=== PATIENT | female | born 1970 | race Caucasian/White ===

== ENCOUNTER → 2019-12-10 11:18 | Outpatient (CLI) | payer BC, SELFPAY ==
[2019-12-10 10:42] VITALS: BMI 20.7
[2019-12-10 12:51] LABS: Vitamin D,25 Hydroxy 39.6 ng/mL
[2019-12-10 12:55] LABS: Anion Gap 2 (5-15); BUN 17 mg/dL (7-18); BUN/Creat Ratio 22.5 RATIO (10-20); Calcium,Total 8.9 mg/dL (8.5-10.1); Chloride 106 mmol/L (98-107); Cholesterol 184 mg/dL (200); Creatinine, Serum 0.76 mg/dL (0.55-1.02); EST Glomerular Filtration Rate 86 mL/min (>60); Est Glom Filt Rate - Afr Amer 104 mL/min (>60); Glucose 91 mg/dL (74-106); High Density Lipoprotein 79 mg/dL; Potassium 3.7 mmol/L (3.5-5.1); Sodium Level 139 mmol/L (136-145); Triglycerides 121 mg/dL; Very Low Density Lipoprotein 24 mg/dL (5-40)
[2019-12-16 17:16] LABS: HPV Reflexed? NOT INDICATED
== END ==
PROVIDERS: PCP Family Medicine; Referring Provider Family Medicine; Visit Provider Family Medicine
DX: Z12.72 Encounter for screening for malignant neoplasm of vagina (principal); E05.00 Thyrotoxicosis with diffuse goiter without thyrotoxic crisis or storm; E07.9 Disorder of thyroid, unspecified
CPT/HCPCS: 36415; 80048; 80061; 82306; 88175; G0145

== ENCOUNTER → 2019-12-31 16:00 | Outpatient (CLI) | payer BC, SELFPAY ==
[2019-12-10 10:42] VITALS: BMI 20.7
--- NOTE | 2019-12-31 16:00 | BI_ITS ---
MAMMOGRAPHY - BILATERAL SCREENING REASON FOR EXAM: Female, 49 years old. Routine annual screening examination. PERTINENT HISTORY: Non-contributory. TECHNIQUE: Digital bilateral breast azalea (3D mammographic acquisition) in the CC and MLO projections. 2-D mediolateral oblique (MLO) and craniocaudad (CC) views of both breasts were obtained. CAD: Full Field Digital Mammography with Computer Added Detection was performed. COMPARISON: Comparison is made with prior outside examination of 08/08/2017. FINDINGS: Breast Composition: The breasts are extremely dense, which lowers the sensitivity of mammography. There are no dominant masses or suspicious calcifications. No other significant abnormalities are identified. There has been no significant change since the prior study. BI/SCREEN MAMM (CAD) W/AZALEA BILAT IMPRESSION: Stable bilateral screening mammogram. Yearly follow-up mammogram recommended. (A) ASSESSMENT CATEGORY: BIRADS Category 1: Negative. A letter regarding these results will be sent to the patient by the facility within 30 days. Approximately 10% of breast cancers are not detected by mammography. A normal mammogram should not delay biopsy of a clinically suspicious abnormality. [id number] Electronically Signed: Isiah Banda, at 8:20 EDT , Service support ,
== END ==
PROVIDERS: PCP Family Medicine; Visit Provider Family Medicine
DX: Z12.31 Encounter for screening mammogram for malignant neoplasm of breast (principal)
CPT/HCPCS: 77063; 77067

== ENCOUNTER 2020-01-06 07:23 | Day surgery (SDC) | payer BC, SELFPAY ==
[2019-12-10 10:42] VITALS: BMI 20.7
[2020-01-06] VITALS (9 sets, daily range): BP systolic 72–122; BP diastolic 41–70; PULSE 62–94; RESP 16; TEMP 36.6–37.2; O2SAT 100; BMI 20.7
[2020-01-06] MEDS: Lactated Ringers 1,000 ML 100 ML IV (07:53)
--- NOTE | 2020-01-06 07:53 | HP.PCM_ITS ---
History of Present Illness Date of Admission: 01/06/20 The patient is a 49 year old F presents for screening colonoscopy. She has never had a colonoscopy in the past. She denies any abdominal pain or blood in her stool. She has no immediate family history of colon cancer. She does have history of colon cancer in her grandmother. She is not on any blood thinners. Past Medical/Surgical History - Planned Operation Planned Operative Procedure/s: COLONOSCOPY Date of Operative Procedure: 01/06/20 Permit Signed: Yes S.O.S: No Is This Patient Having a Total Joint: No - Previous Hospitalizations/Surgeries HX Hospitalizations: No Any Problems With Anesthesia: No You/Your Family Experience Fever (Hyperthermia) With Anes: No Cholinesterase deficiency: No - Cardiovascular Hx Chest Pain within Last 2 months: No Hx of Irregular Heartbeat and/or Afib: No Hx Heart Attack: No Hx Congestive Heart Failure: No Hx Rheumatic Fever: No Hx Hypertension: No Hx Internal Defibrillator: No Hx Pacemaker: No Hx Cardiac Catheterization: No Hx Cardiac Surgery/Stents/Etc.: No Hx Stress Test: No HX Edema: No Hx Pain in Legs when Walking/Leg Cramps: No - Respiratory Chronic Cough: No HX of Shortness of Breath: No Hoarseness: No Hx Chronic Obstructive Pulmonary Disease (COPD): No Hx Asthma: No Hx Emphysema: No Hx Sleep Apnea: No Hx Oxygen Use at Home: No Hx Respiratory Tract Infection/Cold (presently): No Do You Snore Loudly (louder than talking or can be heard): No Do You Often Feel Tired/ Fatigued/ Sleepy Dring Daytime?: No Has Anyone Observed You Stop Breathing During Sleep?: No Result (for STOP score): Negative Hx Smoking: No Smoking Status: Never smoker - Gastrointestinal Hx Gastroesophageal Reflux: No Hx Gastrointestinal Disorders: No Hx Gastrointestinal Bleed: No Hx Ulcer: No Hx Hiatal Hernia: No Difficulty Chewing/Swallowing: No Recent Onset of Swallowing Problems: No Special diet followed at home: No Hx Unplanned Weight Loss of 20#: No HX Unplanned Weight Gain of 20#: No - Neurological Hx Seizures: No HX Syncope/Blackout Spells/Unconsciousness: No Hx CVA/Stroke: No Hx Transient Ischemic Attacks (TIA): No Hx Multiple Sclerosis: No Hx Parkinson's Disease: No Hx Head/Neck Injury: No Hx Headaches: No Hx Back Injury/Pain: No Recent Onset of Speech Difficulty: No Restless Legs: No Does patient have nerve stimulator: No - Blood Disorder Hx Leukemia: No Bleeding Tendencies: No Hx Deep Vein Thrombosis: No Hx High Cholesterol: No Blood Transmitted Disease: No Hx Hepatitis: No Hx Cirrhosis: No Hx Anemia: No Hx Blood Disorders: No - Reproduction : No Is Patient Lactating: No Hx Hysterectomy: No Hx Tubal Ligation: No Are You Post Menopause: No Pt Instructed Not To Have Any Sex From Now Until Surgery: No - Genitourinary Hx Renal Disease: No - Musculoskeletal Hx Arthritis: No Hx Rheumatoid Arthritis: No Hx Gout: No Recent Onset of an Orthopedic Problem: No - Endocrine Hx Diabetes: No Thyroid Disease: No - GRAVES DISEASE-IN REMISSION CURRENTLY Hx Steroid Therapy: No - Psycho/Social Hx Substance Use: No Hx Alcohol Use: No Hx Anxiety: No Hx Depression: No Mental Illness: No Hx Dementia: No - Miscellaneous Hx Cancer: No Recent Exposure to Contagious Disease: No Active MRSA: No Hx of C-Diff: No Any Loose Teeth: No Allergies No Known Allergies Allergy (Verified 01/06/20 07:49) - Discharge Is Pt Admitted From a Assisted, or a Senior Living: No Who Could Help: After D/C, Where Do you Plan to Go: Return Home - Physical Exam Vitals/I&O's: Vital Signs Temp Pulse Resp BP Pulse Ox 98.9 F 94 16 122/70 H 100 01/06/20 07:49 01/06/20 07:49 01/06/20 07:49 01/06/20 07:49 01/06/20 07:49 Oxygen Delivery Method Room Air Weight: 109 lb 9.116 oz Body Mass Index (BMI) 20.7 General: Alert, Oriented x3 Lungs: Normal air movement Cardiovascular: Regular rate, Regular Rhythm Abdomen: Soft, Non Tender, Non-Distended Current Medications Lactated Ringer's () 1,000 mls @ 100 mls/hr IV .Q10H JOSE Last Admin: 01/06/20 07:53 Dose: 100 mls/hr Documented by: Assessment/Plan All Active Problems (Last Reviewed 12/10/19 @ 11:[address] Mikhail Clemons, DO) Encounter for preventive health examination (Acute) Thyroid disease (Acute) History of pneumonia (Acute) Hives (Acute) 49-year-old female here for screening colonoscopy I explained endoscopy in detail to the patient. I explained the risks including but not limited to stroke or heart attack with anesthesia, perforation of the GI tract, bleeding, infection. I explained that any of these could necessitate further emergency surgery. The patient understands and all questions were answered sufficiently. The patient wishes to proceed with procedure. We discussed the current risks associated with COVID-19. While it is understood that there is a community spread of COVID-19, the risk of krishna COVID-19 while at [facility] ([facility]) is very low; however, the risk cannot be completely mitigated because of the community spread of the disease. We discussed in detail the risk of exposure to and/or potential harm posed by the COVID-19 virus with having a surgery/procedure at this time versus the risk of delaying the surgery/procedure. It is not possible to know either the risk of delaying the surgery or procedure or chance of getting an infection with perfect accuracy, but a joint decision was made to proceed at this time with the scheduled surgery/procedure as indicated on the consent form. Patient was notified that we will need to comply with any screening or testing [facility] wishes to perform or that surgery may be delayed for any positive results. Ac Nixon MD Pager: [facility] [address] [place] [address] [address] [place] [address] Office: Surgery Risks - Colonoscopy Risks Include but are not Limited To: Risks include but are not limited to: Bleeding, perforation requiring further surgery, inability to complete colonoscopy requiring barium enema.
--- NOTE | 2020-01-06 08:30 | OP.CCLET_ITS ---
01/06/2020 Mikhail Clemons Re : Colonoscopy procedure for Lizett Jung Dear Dr. Clemons This procedure was performed on Monday, January 06, 2020. My impressions and recommendations are as follows: Impressions : - The entire examined colon is normal on direct and retroflexion views. - No specimens collected. Recommendations : - Discharge patient to home. - Resume previous diet. - Continue present medications. - Repeat colonoscopy in 10 years for screening purposes. My findings are described in the full procedure note, which is enclosed. If I can be of further assistance, please feel free to contact me at Doctor phone number(s): , Work: . Sincerely, Ac Nixon MD 01/06/2020 8:30:23 AM This report has been signed electronically.
--- NOTE | 2020-01-06 08:30 | OP.COLON_ITS ---
Patient Name: Lizett Jung Procedure Date: 01/06/2020 7:56 AM Date of : 1970 Age: 49 Procedure: Colonoscopy Indications: Screening for colorectal malignant neoplasm Providers: Ac Nixon MD Referring MD: Mikhail Clemons Medicines: Monitored Anesthesia Care Patient Profile: This is a 49 year old female. Refer to note in patient chart for documentation of history and physical. Last Colonoscopy: none. The patient's first colonoscopy is today. Complications: No immediate complications. Procedure: Pre-Anesthesia Assessment: - Prior to the procedure, a History and Physical was performed, and patient medications and allergies were reviewed. The patient's tolerance of previous anesthesia was also reviewed. The risks and benefits of the procedure and the sedation options and risks were discussed with the patient. All questions were answered, and informed consent was obtained. Prior Anticoagulants: The patient has taken no previous anticoagulant or antiplatelet agents. After reviewing the risks and benefits, the patient was deemed in satisfactory condition to undergo the procedure. After I obtained informed consent, the scope was passed under direct vision. Throughout the procedure, the patient's blood pressure, pulse, and oxygen saturations were monitored continuously. The colonoscope was introduced through the anus and advanced to the cecum, identified by appendiceal orifice and ileocecal valve. The colonoscopy was performed without difficulty. The patient tolerated the procedure well. The quality of the bowel preparation was good. Scope In: 8:09:09 AM Scope Withdrawal Time 0 hours 6 minutes 20 seconds Scope Out: 8:23:58 AM Total Procedure Duration Time 0 hours 14 minutes 49 seconds Findings: The entire examined colon appeared normal on direct and retroflexion views. Impression: - The entire examined colon is normal on direct and retroflexion views. - No specimens collected. Recommendation: - Discharge patient to home. - Resume previous diet. - Continue present medications. - Repeat colonoscopy in 10 years for screening purposes. Procedure Code(s): --- Professional --- 42540, Colonoscopy, flexible; diagnostic, including collection of specimen(s) by brushing or washing, when performed (separate procedure) Diagnosis Code(s): --- Professional --- Z12.11, Encounter for screening for malignant neoplasm of colon CPT copyright 2017 [employer]. All rights reserved. The codes documented in this report are preliminary and upon airport operations crew member review may be revised to meet current compliance requirements. Ac Nixon MD 01/06/2020 8:30:23 AM This report has been signed electronically. Number of Addenda: 0 Note Initiated On: 01/06/2020 7:56 AM
== END 2020-01-06 09:17 | disposition home or self-care (01) ==
LOC: EN 07:24 → AC 07:24
PROVIDERS: Anesthesiology; PCP Family Medicine; Referring Provider Family Medicine; Visit Provider Surgery
PROC: 0DJD8ZZ Inspection of Lower Intestinal Tract, Via Natural or Artificial Opening Endoscopic (ICD-10-PCS; CPT 45378; principal; 2020-01-06 08:25)
DX: Z12.11 Encounter for screening for malignant neoplasm of colon (principal); Z20.828 Contact with and (suspected) exposure to other viral communicable diseases; Z80.0 Family history of malignant neoplasm of digestive organs; E07.9 Disorder of thyroid, unspecified
CPT/HCPCS: 45378; 87635; C9803; J7120; J2405; U0003

== ENCOUNTER 2021-05-02 13:52 | Outpatient (CLI) | payer BC, SELFPAY ==
[2021-05-02 15:44] LABS: Vitamin B12 384 pg/mL (211-911); Vitamin D,25 Hydroxy 23.6 ng/mL
[2021-05-02 15:53] LABS: Free T3 2.1 pg/mL (2.18-3.98); T4 Free Direct 0.69 ng/dL (0.76-1.46); Thyroid Stim Hormone (TSH) 1.62 uIU/mL (0.358-3.74)
== END 2021-05-02 23:59 | disposition home or self-care (01) ==
LOC: BIMLAB 13:53
PROVIDERS: Visit Provider Internal Medicine Endocrinology, Diabetes & Metabolism
DX: E05.00 Thyrotoxicosis with diffuse goiter without thyrotoxic crisis or storm (principal); E55.9 Vitamin D deficiency, unspecified
CPT/HCPCS: 36415; 82306; 82607; 84439; 84443; 84481

== ENCOUNTER 2021-05-31 11:11 | Outpatient (CLI) | payer BC, SELFPAY ==
[2021-05-31 12:52] LABS: Free T3 2.4 pg/mL (2.18-3.98); T4 Free Direct 0.74 ng/dL (0.76-1.46); Thyroid Stim Hormone (TSH) 1.68 uIU/mL (0.358-3.74)
== END 2021-05-31 23:59 | disposition home or self-care (01) ==
LOC: BIMLAB 11:12
PROVIDERS: Referring Provider Internal Medicine Endocrinology, Diabetes & Metabolism; Visit Provider Internal Medicine Endocrinology, Diabetes & Metabolism
DX: E06.3 Autoimmune thyroiditis (principal)
CPT/HCPCS: 36415; 84439; 84443; 84481

== ENCOUNTER → 2021-09-07 | Outpatient (CLI) | payer BC, SELFPAY ==
[2021-09-07 12:46] LABS: Anion Gap 6 (5-15); BUN 17 mg/dL (7-18); BUN/Creat Ratio 22.4 RATIO (10-20); Calcium,Total 9.1 mg/dL (8.5-10.1); Chloride 107 mmol/L (98-107); Cholesterol 189 mg/dL (200); Creatinine, Serum 0.76 mg/dL (0.55-1.02); EST Glomerular Filtration Rate 85 mL/min (>60); Est Glom Filt Rate - Afr Amer 103 mL/min (>60); Glucose 91 mg/dL (74-106); High Density Lipoprotein 76 mg/dL; Potassium 3.8 mmol/L (3.5-5.1); Sodium Level 141 mmol/L (136-145); Thyroid Stim Hormone (TSH) 1.57 uIU/mL (0.358-3.74); Triglycerides 67 mg/dL; Very Low Density Lipoprotein 13 mg/dL (5-40)
[2021-09-07 12:48] LABS: Absolute Lymphocyte Count 2.61 X10^3/uL (0.83-4.51); Absolute Neutrophil Count 3.4 X10^3/uL (2.0-7.7); Basophil# 0.03 X10^3/uL; Basophil% 0.4 % (0-1); Eosinophil# 0.34 X10^3/uL; Eosinophils% 4.9 % (0-5); Hemoglobin 13.6 g/dL (12.0-15.0); Lymphocyte # 2.61 X10^3/ul (0.83-4.51); Lymphocyte % 37.7 % (19-41); Mean Corp Hgb Conc 31.6 g/dL (32-36); Mean Corpuscular Hgb 30.8 pg (27.0-32.0); Mean Corpuscular Volume 97.3 fL (81-99); Mean Platelet Vol. 9.8 fl (6.2-12.0); Monocyte# 0.51 X10^3/uL; Monocyte% 7.4 % (0-10); NRBC Flagged by Analyzer 0 % (0-5); Neutrophil # 3.43 X10^3/uL (2.7-7.7); Neutrophil % 49.5 % (47-70); Platelet Count 179 K/mm3 (150-450); RBC Distribution Width SD 43.2 fl (35.1-43.9); Red Blood Count 4.42 M/mm3 (4.2-5.4); White Blood Count 6.9 K/mm3 (4.4-11.0)
== END | disposition home or self-care (01) ==
LOC: BIMLAB 08:07
PROVIDERS: Referring Provider Nurse Practitioner Family; Visit Provider Nurse Practitioner Family
DX: Z00.00 Encounter for general adult medical examination without abnormal findings (principal)
CPT/HCPCS: 36415; 80048; 80061; 84443; 85025

== ENCOUNTER → 2021-09-27 | Outpatient (CLI) | payer BC, SELFPAY ==
--- NOTE | 2021-09-27 16:03 | BI_ITS ---
MAMMOGRAPHY - BILATERAL SCREENING REASON FOR EXAM: Female, 51 years old. Routine annual screening examination. PERTINENT HISTORY: Non-contributory. TECHNIQUE: Digital bilateral breast azalea (3D mammographic acquisition) in the CC and MLO projections. 2-D mediolateral oblique (MLO) and craniocaudad (CC) views of both breasts were obtained. CAD: Full Field Digital Mammography with Computer Added Detection was performed. COMPARISON: Comparison is made with prior study dated 12/31/2019. FINDINGS: Breast Composition: The breasts are extremely dense, which lowers the sensitivity of mammography. There are no dominant masses or suspicious calcifications. I suspect a 6.3 mm x 8.1 mm nodule in the slightly upper lateral aspect of the left breast. Correlation with ultrasound is recommended. No other significant abnormalities are identified. BI/SCRN MAMM (CAD)W/AZALEA BILAT IMPRESSION: Possible 6.3 mm x 8.1 mm nodule in the slightly upper lateral aspect of the left breast. Correlation with ultrasound is recommended. ASSESSMENT CATEGORY: BIRADS Category 0: Incomplete. Need additional imaging evaluation. A letter regarding these results will be sent to the patient by the facility within 30 days. Approximately 10% of breast cancers are not detected by mammography. A normal mammogram should not delay biopsy of a clinically suspicious abnormality. [id number] Electronically Signed: Isiah Banda MD at 9:03 EDT ,
== END | disposition home or self-care (01) ==
PROVIDERS: PCP Family Medicine; Referring Provider Nurse Practitioner Family; Visit Provider Nurse Practitioner Family
DX: Z12.31 Encounter for screening mammogram for malignant neoplasm of breast (principal)
CPT/HCPCS: 77063; 77067

== ENCOUNTER → 2021-09-28 | Outpatient (CLI) | payer BC, SELFPAY ==
--- NOTE | 2021-09-28 12:24 | US_ITS ---
STUDY: ULTRASOUND BREAST - LEFT REASON FOR EXAM: Female, 51 years old. Abnormal screening mammogram. TECHNIQUE: Axial and longitudinal images of the LEFT breast were performed with a high resolution ultrasound transducer. # OF IMAGES: 48 COMPARISON: Comparison is made with prior mammogram dated 09/27/2021. FINDINGS: LEFT Breast: Dense fibroglandular tissue. No definite sonographic abnormality is seen. The patient will be recalled for additional views of the left breast including 90 degree lateral and compression spot views. US/Breast Limited Unilateral IMPRESSION: No definite abnormality is seen sonographically. The patient will be recalled for additional views including 90 degree lateral and compression spot views. ASSESSMENT CATEGORY: BIRADS Category 0: Incomplete. Need additional imaging evaluation. A letter regarding these results will be sent to the patient by the facility within 30 days. Electronically Signed: Isiah Banda MD at 14:11 EDT ,
== END | disposition home or self-care (01) ==
PROVIDERS: PCP Family Medicine; Visit Provider Nurse Practitioner Family
DX: R92.8 Other abnormal and inconclusive findings on diagnostic imaging of breast (principal)
CPT/HCPCS: 76642

== ENCOUNTER → 2021-09-30 | Outpatient (CLI) | payer BC, SELFPAY ==
--- NOTE | 2021-09-30 09:26 | BI_ITS ---
MAMMOGRAPHY - UNILATERAL DIAGNOSTIC: LEFT BREAST REASON FOR EXAM: Female, 51 years old. Abnormal screening mammogram. PERTINENT HISTORY: Non-contributory. TECHNIQUE: 90 degree lateral and compression spot views of the left breast were obtained. CAD: Full Field Digital Mammography with Computer Added Detection was performed. COMPARISON: Comparison is made with prior mammogram dated 09/27/2021. FINDINGS: Breast Composition: The breasts are extremely dense, which lowers the sensitivity of mammography. There are no dominant masses or suspicious calcifications. No other significant abnormalities are identified. BI/DIAG MAMM W/CAD, UNILAT IMPRESSION: Negative unilateral diagnostic mammogram. Yearly followup mammogram recommended. (A) ASSESSMENT CATEGORY: BIRADS Category 1: Negative. A letter regarding these results will be sent to the patient by the facility within 30 days. Approximately 10% of breast cancers are not detected by mammography. A normal mammogram should not delay biopsy of a clinically suspicious abnormality. Electronically Signed: Isiah Banda MD at 10:12 EDT ,
== END | disposition home or self-care (01) ==
LOC: OPBI 09:24
PROVIDERS: PCP Family Medicine; Referring Provider Nurse Practitioner Family; Visit Provider Nurse Practitioner Family
DX: R92.8 Other abnormal and inconclusive findings on diagnostic imaging of breast (principal)
CPT/HCPCS: 77065

== ENCOUNTER → 2022-09-02 | Outpatient (CLI) | payer BC, SELFPAY ==
[2022-09-02 12:30] LABS: T4 Free Direct 0.69 ng/dL (0.76-1.46); Thyroid Stim Hormone (TSH) 2.05 uIU/mL (0.358-3.74)
== END | disposition home or self-care (01) ==
PROVIDERS: PCP Family Medicine; Referring Provider Internal Medicine Endocrinology, Diabetes & Metabolism; Visit Provider Internal Medicine Endocrinology, Diabetes & Metabolism
DX: E06.3 Autoimmune thyroiditis (principal)
CPT/HCPCS: 36415; 84439; 84443

== ENCOUNTER → 2022-11-22 | Outpatient (CLI) | payer BC, SELFPAY ==
--- NOTE | 2022-11-22 13:26 | BI_ITS ---
MAMMOGRAPHY - BILATERAL SCREENING REASON FOR EXAM: Female, 52 years old. Routine annual screening examination. PERTINENT HISTORY: Non-contributory. TECHNIQUE: Digital bilateral breast azalea (3D mammographic acquisition) in the CC and MLO projections. 2-D mediolateral oblique (MLO) and craniocaudad (CC) views of both breasts were obtained. CAD: Full Field Digital Mammography with Computer Added Detection was performed. COMPARISON: Comparison is made with prior study September 27, 2021 and September 30, 2021. FINDINGS: Breast Composition: The breasts are extremely dense, which lowers the sensitivity of mammography. There are no dominant masses or suspicious calcifications. No other significant abnormalities are identified. There has been no significant change since the prior study. BI/SCRN MAMM (CAD)W/AZALEA BILAT IMPRESSION: Stable bilateral screening mammogram. Yearly follow-up mammogram recommended. (A) ASSESSMENT CATEGORY: BIRADS Category 1: Negative. A letter regarding these results will be sent to the patient by the facility within 30 days. Approximately 10% of breast cancers are not detected by mammography. A normal mammogram should not delay biopsy of a clinically suspicious abnormality. [id number] Electronically Signed: Isiah Banda MD at 14:38 EDT ,
== END | disposition home or self-care (01) ==
PROVIDERS: PCP Family Medicine; Referring Provider Family Medicine; Visit Provider Family Medicine
DX: Z12.31 Encounter for screening mammogram for malignant neoplasm of breast (principal)
CPT/HCPCS: 77063; 77067

== ENCOUNTER → 2023-04-03 | Outpatient (CLI) | payer BC, SELFPAY ==
--- OUTSIDE RECORDS SUMMARY | 2023-04-03 15:04 | XMS RPT_ITS | CCD ---
Author Name Unknown Address [address] [place] [address] Organization [facility] Results Test Name Value Interpretation Reference Range Facil ity Summary Purpose Family History No Family History Records Found Advance Directives No Advanced Directives Records Found Additional Source Comments INFORMATION SOURCE (unrecogn ized section and content) FOR RECORDS PERTAINING TO PATIENTS WHO ARE OR HAVE BEEN ENROLLED IN A CHEMICAL DEPENDENCY/SUBSTANCEABUSE PROGRAM, SOME INFORMATION MAY BE OMITTED. This clinical summary was aggregated from multiple sources. Caution should be exercised in using it in the provision of clinical care. This summary normalizes information from multiple sources, and as a consequence, information in this document may materially change the coding, format and clinical context of patient data. In addition, data may be omitted in some cases. CLINICAL DECISIONS SHOULD BE BASED ON THE PRIMARY CLINICAL RECORDS. [employer] provides no warranty or guarantee of the accuracy or completeness of information in this document.
[2023-04-03 16:37] LABS: T4 Free Direct 0.79 ng/dL (0.76-1.46)
== END | disposition home or self-care (01) ==
LOC: BIMLAB 14:43
PROVIDERS: Nurse Practitioner Family; PCP Family Medicine; Visit Provider Family Medicine
DX: E07.9 Disorder of thyroid, unspecified (principal)
CPT/HCPCS: 36415; 84439; 84443

== ENCOUNTER 2023-08-09 17:13 | Inpatient (IN) | payer BC, SELFPAY ==
[2023-08-09] VITALS (7 sets, daily range): BP systolic 100–129; BP diastolic 61–73; PULSE 76–127; RESP 15–19; TEMP 36.3–38.1; O2SAT 97–100; BMI 20.6
[2023-08-09] MEDS: Acetaminophen 325 MG Tablet 650 MG PO (17:49)
[2023-08-09] MEDS: 0.9% Normal Saline (1000mL) 1,000 ML 999 ML IV ×2 (17:50→19:54)
[2023-08-09 17:57] LABS: Red Blood Cells-Urine 0 SEEN /hpf (0-5)
[2023-08-09 18:01] LABS: Absolute Lymphocyte Count 2.48 X10^3/uL (0.83-4.51); Absolute Neutrophil Count 17.8 X10^3/uL (2.0-7.7); Basophil# 0.04 X10^3/uL; Basophil% 0.2 % (0-1); Eosinophil# 0.02 X10^3/uL; Eosinophils% 0.1 % (0-5); Hematocrit 43.9 % (37-47); Hemoglobin 14.4 g/dL (12.0-15.0); Lymphocyte # 2.48 X10^3/ul (0.83-4.51); Lymphocyte % 11.5 % (19-41); Mean Corp Hgb Conc 32.8 g/dL (32-36); Mean Corpuscular Volume 91.5 fL (81-99); Mean Platelet Vol. 9.5 fl (6.2-12.0); Monocyte# 1.04 X10^3/uL; Monocyte% 4.8 % (0-10); NRBC Flagged by Analyzer 0 % (0-5); Neutrophil # 17.76 X10^3/uL (2.7-7.7); Neutrophil % 82.6 % (47-70); Platelet Count 209 K/mm3 (150-450); RBC Distribution Width CV 12.4 % (11.6-14.6); RBC Distribution Width SD 41.6 fl (35.1-43.9); White Blood Count 21.5 K/mm3 (4.4-11.0)
--- NOTE | 2023-08-09 18:02 | ED.VIS.GI ---
HPI <JUAREZ Francisco - Last Filed: 08/09/23 22:15> HPI - GI History of Present Illness Chief Complaint: Abd Pain Narrative Narrative: Patient presenting today due to suprapubic pain that started on Sunday. She had associated nausea and vomiting Sunday evening and Sunday morning that has subsided. She has had intermittent subjective fevers. She did go to urgent care today where they diagnosed her with a UTI and started her on Bactrim and Pyridium, she has had 1 dose of each. She denies any history of UTIs or kidney stones. She denies diarrhea, previous abdominal surgeries, dysuria, and increased urinary frequency. PFSH <JUAREZ Francisco - Last Filed: 08/09/23 22:15> PFS Medical History Autoimmune thyroiditis Allergic rhinitis Graves disease Home Medications ?Medication ?Instructions ?Recorded ?Last Taken ?Type cholecalciferol (vitamin D3) 50 50 mcg PO BID 03/16/22 Unknown History mcg (2,000 unit) chewable tablet phenazopyridine 100 mg tablet 100 mg PO TID PRN pain #14 tabs 08/09/23 Unknown Rx sulfamethoxazole 800 1 tab PO Q12H 5 days #10 tabs 08/09/23 Unknown Rx mg-trimethoprim 160 mg tablet Allergy/AdvReac Type Severity Reaction Status Date / Time No Known Allergies Allergy Verified 08/09/23 17:14 Family History (Updated 08/09/23 @ 23:[address] Chanell Thompson MD) Grandmother Colon cancer Arthritis Grandfather Arthritis Heart disease Mother Hypertension Father , Passed secondary to complicates during COVID illness. Pneumonia due to COVID-19 virus Surgical History No history of previous surgery Social History adopted: No household members: spouse and children number of children: 5 current occupational status: employed current occupation: [employer] pets and animals: Yes pets and animals: cat(s) and dog(s) Smoking Status: Never smoker alcohol intake: never substance use type: does not use caffeine: Yes (1) Type: coffee what type of physical activity do you participate in: none frequency: 3-4 times per week seatbelt use: always do you feel safe at home: Yes ROS <JUAREZ Francicso - Last Filed: 08/09/23 22:15> ROS ED Constitutional Constitutional ED: Reports fever(s) and subjective Cardiovascular Cardiovascular: Denies chest pain Respiratory/Chest Respiratory/Chest: Denies dyspnea Gastrointestinal Gastrointestinal: Reports abdominal pain, nausea and vomiting; Denies diarrhea Genitourinary Genitourinary ED: Denies dysuria, hematuria, urinary frequency or urinary urgency Musculoskeletal Musculoskeletal: Denies back pain Integumentary Denies rash Neurologic Neurologic: Denies weakness EXAM <JUAREZ Francisco - Last Filed: 08/09/23 22:15> Physical Exam Const Vital Signs: 08/09/23 17:14 08/09/23 18:56 08/09/23 19:52 Temperature 100.5 F H 98.7 F 97.5 F L Temperature Source Temporal Oral Temporal Pulse Rate 127 H 94 92 Respiratory Rate 18 16 18 Blood Pressure 129/71 H 104/69 100/67 Blood Pressure Mean 90 80 78 Pulse Ox 97 97 97 Oxygen Delivery Method Room Air Room Air Room Air 08/09/23 21:00 08/09/23 22:00 08/09/23 22:51 Temperature 97.4 F L 97.3 F L 97.3 F L Temperature Source Temporal Temporal Pulse Rate 98 79 76 Respiratory Rate 19 H 15 15 Blood Pressure 100/66 104/73 104/73 Blood Pressure Mean 77 83 83 Pulse Ox 100 97 98 Oxygen Delivery Method Room Air Room Air 08/09/23 23:00 08/10/23 00:00 Temperature 98.1 F 97.5 F L Temperature Source Oral Temporal Pulse Rate 80 80 Respiratory Rate 16 19 H Blood Pressure 104/61 101/60 Blood Pressure Mean 75 73 Pulse Ox 99 98 Oxygen Delivery Method Room Air Room Air Positive well nourished, well developed and no apparent distress General Appearance ED: well developed HEENT Reports normocephalic and head/scalp atraumatic Mouth ED: Yes moist mucous membranes normal Eyes PERRL and EOMs intact bilaterally Neck full ROM and supple Chest Wall inspection of chest normal Resp normal respiratory effort and clear to auscultation bilaterally Cardio regular rate and regular rhythm GI soft to palpation, non-distended and no masses GI Narrative: negative Daley sign, patient does have tenderness to the suprapubic region, right and left lower quadrant with guarding. Back/Spine normal ROM and normal to inspection Extremity normal to inspection and full ROM Neuro oriented x3, CN's II-XII intact bilaterally, moves all extremities, no focal motor deficits and no sensory deficits noted Sensorium / Orientation: awake and alert Psych mental status grossly normal and thought process normal Skin no rashes or lesions noted and no wounds <Dr. Alexandra Aguilar MD - Last Filed: 08/09/23 22:42> Physical Exam Const Vital Signs: 08/09/23 17:14 08/09/23 18:56 08/09/23 19:52 Temperature 100.5 F H 98.7 F 97.5 F L Temperature Source Temporal Oral Temporal Pulse Rate 127 H 94 92 Respiratory Rate 18 16 18 Blood Pressure 129/71 H 104/69 100/67 Blood Pressure Mean 90 80 78 Pulse Ox 97 97 97 Oxygen Delivery Method Room Air Room Air Room Air 08/09/23 21:00 08/09/23 22:00 08/09/23 22:51 Temperature 97.4 F L 97.3 F L 97.3 F L Temperature Source Temporal Temporal Pulse Rate 98 79 76 Respiratory Rate 19 H 15 15 Blood Pressure 100/66 104/73 104/73 Blood Pressure Mean 77 83 83 Pulse Ox 100 97 98 Oxygen Delivery Method Room Air Room Air 08/09/23 23:00 08/10/23 00:00 Temperature 98.1 F 97.5 F L Temperature Source Oral Temporal Pulse Rate 80 80 Respiratory Rate 16 19 H Blood Pressure 104/61 101/60 Blood Pressure Mean 75 73 Pulse Ox 99 98 Oxygen Delivery Method Room Air Room Air <Dr. Nate Seth DO - Last Filed: 08/10/23 00:50> Physical Exam Const Vital Signs: 08/09/23 17:14 08/09/23 18:56 08/09/23 19:52 Temperature 100.5 F H 98.7 F 97.5 F L Temperature Source Temporal Oral Temporal Pulse Rate 127 H 94 92 Respiratory Rate 18 16 18 Blood Pressure 129/71 H 104/69 100/67 Blood Pressure Mean 90 80 78 Pulse Ox 97 97 97 Oxygen Delivery Method Room Air Room Air Room Air 08/09/23 21:00 08/09/23 22:00 08/09/23 22:51 Temperature 97.4 F L 97.3 F L 97.3 F L Temperature Source Temporal Temporal Pulse Rate 98 79 76 Respiratory Rate 19 H 15 15 Blood Pressure 100/66 104/73 104/73 Blood Pressure Mean 77 83 83 Pulse Ox 100 97 98 Oxygen Delivery Method Room Air Room Air 08/09/23 23:00 08/10/23 00:00 Temperature 98.1 F 97.5 F L Temperature Source Oral Temporal Pulse Rate 80 80 Respiratory Rate 16 19 H Blood Pressure 104/61 101/60 Blood Pressure Mean 75 73 Pulse Ox 99 98 Oxygen Delivery Method Room Air Room Air [facility] <JUAREZ Francisco - Last Filed: 08/09/23 22:15> [facility] Narrative Medical decision making narrative: Patient presenting today with suprapubic abdominal pain and nausea and vomiting that started on Sunday. The N/V has resolved. She went to urgent care today and was diagnosed with a UTI after having leukocytes and trace blood in her urine and was started on Bactrim which she took 1 dose of today. On initial presentation she is tachycardic and febrile. Sepsis workup was obtained including blood cultures. She does have leukocytosis at 21.5, her lactic acid is within normal limits. UA is positive for nitrites but otherwise is unimpressive. Culture obtained. She was given Tylenol for fever and IV fluids, Zofran, and Toradol. CT of the abdomen and pelvis shows a left retroperitoneal fluid collection. Dr. Nixon was consulted and recommends obtaining a transvaginal ultrasound. Workup is pending. Lab Data Attestation: I reviewed the patient's lab results. Lab results narrative: WBC 21.5, sodium 134, potassium 3.1 Labs: Laboratory Results - last 24 hr 08/09/23 08/09/23 08/09/23 17:25 17:45 17:46 WBC 21.5 H RBC 4.80 Hgb 14.4 Hct 43.9 MCV 91.5 MCH 30.0 MCHC 32.8 RDW Std Deviation 41.6 RDW Coeff of Velma 12.4 Plt Count 209 MPV 9.5 Immature Gran % (Auto) 0.800 Neut % (Auto) 82.6 H Lymph % (Auto) 11.5 L [place] % (Auto) 4.8 Eos % (Auto) 0.1 Baso % (Auto) 0.2 Absolute Neuts (auto) 17.8 H Absolute Lymphs (auto) 2.48 Nucleated RBC % 0 Sodium 134 L Potassium 3.1 L Chloride 101 Carbon Dioxide 27.0 Anion Gap 6 BUN 12 Creatinine 0.84 Estim Creat Clear Calc 58.45 Est GFR (MDRD) Af Amer 91 Est GFR (MDRD) Non-Af 75 BUN/Creatinine Ratio 14.3 Glucose 123 H Lactic Acid 1.1 Calcium 9.2 Magnesium 2.0 Total Bilirubin 0.80 AST 15 ALT 16 Alkaline Phosphatase 122 H Total Protein 7.9 Albumin 3.8 Globulin 4.1 Albumin/Globulin Ratio 0.9 Lipase 17 Urine Color SEE COMMENT BELOW Urine Clarity Clear Urine pH 5.0 Ur Specific Humble 1.015 Urine Protein 100 H Urine Glucose (UA) Normal Urine Ketones 50 H Urine Occult Blood 50 H Urine Nitrite Positive H Urine Bilirubin 6 H Urine Urobilinogen 12 H Ur Leukocyte Esterase Negative Urine RBC 0 SEEN Urine WBC 0-5 SEEN Ur Squamous Epith Cells 0-5 SEEN Urine Bacteria RARE Urine Mucus 1+ Radiography Diagnostic Testing: Clinical Impression(s) from Imaging Studies Abdomen/Pelvis CT 08/09/23 18:07 IMPRESSION: Left retroperitoneal fluid collection or cystic lesion. Abscess not excluded. Ileus. Electronically Signed: Inocencio Love MD at 19:46 EDT , Transvaginal US 08/09/23 21:02 IMPRESSION: Large complex left adnexal or ovarian mass and fluid collection or cyst. No evidence of torsion. Large amount of fluid in the cul-de-sac. DELI COOK consultation recommended. This appears to correspond to the suspected retroperitoneal mass on CT. Electronically Signed: Inocencio Love MD at 23:40 EDT , <Dr. Alexandra Aguilar MD - Last Filed: 08/09/23 22:42> [facility] Lab Data Labs: Laboratory Results - last 24 hr 08/09/23 08/09/23 08/09/23 17:25 17:45 17:46 WBC 21.5 H RBC 4.80 Hgb 14.4 Hct 43.9 MCV 91.5 MCH 30.0 MCHC 32.8 RDW Std Deviation 41.6 RDW Coeff of Velma 12.4 Plt Count 209 MPV 9.5 Immature Gran % (Auto) 0.800 Neut % (Auto) 82.6 H Lymph % (Auto) 11.5 L [place] % (Auto) 4.8 Eos % (Auto) 0.1 Baso % (Auto) 0.2 Absolute Neuts (auto) 17.8 H Absolute Lymphs (auto) 2.48 Nucleated RBC % 0 Sodium 134 L Potassium 3.1 L Chloride 101 Carbon Dioxide 27.0 Anion Gap 6 BUN 12 Creatinine 0.84 Estim Creat Clear Calc 58.45 Est GFR (MDRD) Af Amer 91 Est GFR (MDRD) Non-Af 75 BUN/Creatinine Ratio 14.3 Glucose 123 H Lactic Acid 1.1 Calcium 9.2 Magnesium 2.0 Total Bilirubin 0.80 AST 15 ALT 16 Alkaline Phosphatase 122 H Total Protein 7.9 Albumin 3.8 Globulin 4.1 Albumin/Globulin Ratio 0.9 Lipase 17 Urine Color SEE COMMENT BELOW Urine Clarity Clear Urine pH 5.0 Ur Specific Humble 1.015 Urine Protein 100 H Urine Glucose (UA) Normal Urine Ketones 50 H Urine Occult Blood 50 H Urine Nitrite Positive H Urine Bilirubin 6 H Urine Urobilinogen 12 H Ur Leukocyte Esterase Negative Urine RBC 0 SEEN Urine WBC 0-5 SEEN Ur Squamous Epith Cells 0-5 SEEN Urine Bacteria RARE Urine Mucus 1+ Radiography Diagnostic Testing: Clinical Impression(s) from Imaging Studies Abdomen/Pelvis CT 08/09/23 18:07 IMPRESSION: Left retroperitoneal fluid collection or cystic lesion. Abscess not excluded. Ileus. Electronically Signed: Inocencio Love MD at 19:46 EDT , Transvaginal US 08/09/23 21:02 IMPRESSION: Large complex left adnexal or ovarian mass and fluid collection or cyst. No evidence of torsion. Large amount of fluid in the cul-de-sac. DELI COOK consultation recommended. This appears to correspond to the suspected retroperitoneal mass on CT. Electronically Signed: Inocencio Love MD at 23:40 EDT , Treatment and Re-Evaluation :: Patient seen and evaluated with SUZANNE. I personally interviewed and examined the patient. I was involved in all aspects of patient's orders, interpretation of results, and treatment. Patient presents secondary to fever and suprapubic pain. 2 days ago she developed suprapubic pain but no dysuria. She has had vomiting and diarrhea for couple days but that seems to be improving. She was seen at urgent care earlier today and diagnosed with a UTI. She was given Bactrim and Pyridium. She presents to the ER tonight due to continued pain and fever. Patient lying in bed no acute distress. Nontoxic-appearing. Head and neck examination unremarkable. Heart is slightly tachycardic. Lung sounds are clear. Abdomen is soft with tenderness in the suprapubic area and in the right lower quadrant at the time of my exam. No guarding or rebound. CBC significant for a white count of 21.5 with 82% neutrophils. Hemoglobin is normal at 14.4. Chemistry studies reveal a sodium of 134 and a chloride of 101. Potassium is slightly low at 3.1. Renal function is unremarkable. Lactic acid is normal at 1.1. LFTs significant only for an alk phos of 122. Urinalysis is positive for nitrites with rare bacteria and 0-[address] scan of the abdomen pelvis with IV contrast is obtained that shows a left retroperitoneal fluid collection or cystic lesion. Abscess is not excluded. Ileus noted. Test results are discussed with Dr. Nixon, on-call for surgery. He reviewed the images with me. We are unable to determine whether this fluid collection is arising from. It does not appear to be from the ureter as there is no enhancement with the IV contrast. It is retroperitoneal and does not appear to be coming from the bowel. Pelvic ultrasound is recommended as she does have some free fluid in the pelvis. If this does not give a definitive cause of her findings we discussed admitting the patient overnight for an MRI of the pelvis to further evaluate this collection. Pelvic ultrasound has been obtained and result pending at this time. This was signed out to oncoming physician for final review. I did speak with the hospitalist to review the case as patient may need to be observed in the hospital overnight. We will cover her with broad-spectrum Zosyn and vancomycin at this time while awaiting workup. <Dr. Nate Seth, DO - Last Filed: 08/10/23 00:50> [facility] Narrative Medical decision making narrative: Patient presenting today with suprapubic abdominal pain and nausea and vomiting that started on Sunday. The N/V has resolved. She went to urgent care today and was diagnosed with a UTI after having leukocytes and trace blood in her urine and was started on Bactrim which she took 1 dose of today. On initial presentation she is tachycardic and febrile. Sepsis workup was obtained including blood cultures. She does have leukocytosis at 21.5, her lactic acid is within normal limits. UA is positive for nitrites but otherwise is unimpressive. Culture obtained. She was given Tylenol for fever and IV fluids, Zofran, and Toradol. CT of the abdomen and pelvis shows a left retroperitoneal fluid collection. Dr. Nixon was consulted and recommends obtaining a transvaginal ultrasound. Workup is pending. Patient care turned over to me awaiting results of pelvic ultrasound. Pelvic ultrasound shows left adnexal cystic mass with free fluid in the cul-de-sac. Discussed case with hospitalist who recommended consultation with [facility] SUPPORT PROFESSIONAL CAREGIVER for admission. Discussed case with Dr. Hartmann and discussed findings of CT, lab work, and pelvic ultrasound. Patient will be admitted. I was asked by Dr. Talbot to start patient on Zosyn and vancomycin IV which was ordered. Patient will be admitted for pelvic pain with fever and leukocytosis and left adnexal mass versus infectious process. Patient is sexually active and monogamous with her no history of pelvic infections. She has not had any abnormal vaginal discharge. Dr. Hartmann did asked that I send urine for gonorrhea and chlamydia. Lab Data Labs: Laboratory Results - last 24 hr 08/09/23 08/09/23 08/09/23 17:25 17:45 17:46 WBC 21.5 H RBC 4.80 Hgb 14.4 Hct 43.9 MCV 91.5 MCH 30.0 MCHC 32.8 RDW Std Deviation 41.6 RDW Coeff of Velma 12.4 Plt Count 209 MPV 9.5 Immature Gran % (Auto) 0.800 Neut % (Auto) 82.6 H Lymph % (Auto) 11.5 L [place] % (Auto) 4.8 Eos % (Auto) 0.1 Baso % (Auto) 0.2 Absolute Neuts (auto) 17.8 H Absolute Lymphs (auto) 2.48 Nucleated RBC % 0 Sodium 134 L Potassium 3.1 L Chloride 101 Carbon Dioxide 27.0 Anion Gap 6 BUN 12 Creatinine 0.84 Estim Creat Clear Calc 58.45 Est GFR (MDRD) Af Amer 91 Est GFR (MDRD) Non-Af 75 BUN/Creatinine Ratio 14.3 Glucose 123 H Lactic Acid 1.1 Calcium 9.2 Magnesium 2.0 Total Bilirubin 0.80 AST 15 ALT 16 Alkaline Phosphatase 122 H Total Protein 7.9 Albumin 3.8 Globulin 4.1 Albumin/Globulin Ratio 0.9 Lipase 17 Urine Color SEE COMMENT BELOW Urine Clarity Clear Urine pH 5.0 Ur Specific Humble 1.015 Urine Protein 100 H Urine Glucose (UA) Normal Urine Ketones 50 H Urine Occult Blood 50 H Urine Nitrite Positive H Urine Bilirubin 6 H Urine Urobilinogen 12 H Ur Leukocyte Esterase Negative Urine RBC 0 SEEN Urine WBC 0-5 SEEN Ur Squamous Epith Cells 0-5 SEEN Urine Bacteria RARE Urine Mucus 1+ Radiography Diagnostic Testing: Clinical Impression(s) from Imaging Studies Abdomen/Pelvis CT 08/09/23 18:07 IMPRESSION: Left retroperitoneal fluid collection or cystic lesion. Abscess not excluded. Ileus. Electronically Signed: Inocencio Love MD at 19:46 EDT , Transvaginal US 08/09/23 21:02 IMPRESSION: Large complex left adnexal or ovarian mass and fluid collection or cyst. No evidence of torsion. Large amount of fluid in the cul-de-sac. DELI COOK consultation recommended. This appears to correspond to the suspected retroperitoneal mass on CT. Electronically Signed: Inocencio Love MD at 23:40 EDT Reading Location ID and State: [address] [place] [address] Tel , Service support , Discharge Plan Triage Chief Complaint: Abd Pain ED Midlevel Provider: Rajani Tan ED Provider: Alexandra Aguilar Dx/Rx/DC Orders Clinical Impression: Fever, UTI (urinary tract infection), Retroperitoneal fluid collection Prescriptions: No Action cholecalciferol (vitamin D3) 50 mcg (2,000 unit) tablet,chewable 50 mcg PO BID sulfamethoxazole-trimethoprim 800-160 mg tablet 1 tab PO Q12H 5 Days Qty: 10 0RF phenazopyridine 100 mg tablet 100 mg PO TID PRN (Reason: pain) Qty: 14 0RF Primary Care Provider: Mikhail Clemons Referrals: Mikhail Clemons, [Primary Care Provider] - Print Language: Maltese
--- NOTE | 2023-08-09 18:07 | CT_ITS ---
STUDY: CT ABDOMEN AND PELVIS WITH CONTRAST REASON FOR EXAM: Female, 52 years old. abdominal pain RADIATION DOSAGE (If Supplied By Facility): CTDIvol = ( 6.07 ) mGy, DLP = ( 251.49 ) mGycm TECHNIQUE: Transaxial images were obtained from the dome of the diaphragm to the symphysis pubis without oral contrast. IV 100mL Isovue-300 was administered. Sagittal and coronal images were reconstructed. Individualized dose optimization techniques were used for this CT. The protocol utilizes one or more of the following dose reduction techniques: automated exposure control, adjustment of mA and/or kV according to patient size,and/or use of iterative reconstruction technique. COMPARISON: None. FINDINGS: The visualized lung bases are unremarkable. The visualized portions of the heart are within normal limits. Normal liver. Normal gallbladder and extrahepatic biliary system. Normal spleen. Normal pancreas. Normal bilateral adrenal glands. Normal right kidney. Normal left kidney. Normal visualized stomach. Air-fluid levels in the small and large bowel. Appendix is not identified. Retroaortic left renal vein. Normal abdominal aorta. Normal inferior vena cava. Septated left retroperitoneal cystic lesion or fluid collection measuring 4.2 x 5.8 cm in AP and transverse dimensions. Normal urinary bladder. Uterus normal. Moderate free fluid. Normal abdominal wall. Limbus vertebrae at L2. CT/Abdomen/Pelvis W IV Cont ONLY IMPRESSION: Left retroperitoneal fluid collection or cystic lesion. Abscess not excluded. Ileus. Electronically Signed: Inocencio Love MD at 19:46 EDT ,
[2023-08-09 18:22] LABS: Glucose, Dipstick Normal (Normal); Ketone-Dipstick 50 mg/dl (Negative); Leukocyte Esterase-Dipstick Negative /ul (Negative); Nitrite-Dipstick Positive (Negative); Occult Blood-Urine 50 /ul (Negative); Protein-Dipstick 100 mg/dl (Negative); Specific Gravity, Urine 1.015 (1.002-1.030); Urine Clarity Clear (Clear); Urine Urobilinogen 12 mg/dl (Normal)
[2023-08-09 18:28] LABS: ALB/GLOB Ratio 0.9 RATIO (0.9-2.4); AST(SGOT) 15 U/L (15-37); Alanine Aminotransfer ALT/SGPT 16 U/L (13-56); Albumin, Serum 3.8 g/dL (3.2-5.0); Alkaline Phosphatase 122 U/L (45-117); Anion Gap 6 (5-15); BUN 12 mg/dL (7-18); BUN/Creat Ratio 14.3 RATIO (10-20); Calcium,Total 9.2 mg/dL (8.5-10.1); Chloride 101 mmol/L (98-107); Creatinine, Serum 0.84 mg/dL (0.55-1.02); EST Glomerular Filtration Rate 75 mL/min (>60); Est Glom Filt Rate - Afr Amer 91 mL/min (>60); Estimated Creatinine Clearance 58.45 ml/min; Globulin 4.1 g/dL (2.2-4.2); Glucose 123 mg/dL (74-106); Potassium 3.1 mmol/L (3.5-5.1); Protein, Total 7.9 g/dL (6.4-8.2); Sodium Level 134 mmol/L (136-145)
[2023-08-09 18:29] LABS: Lactic Acid 1.1 mmol/L (0.4-1.9)
[2023-08-09 18:35] LABS: Lipase 17 U/L (13-75)
[2023-08-09 18:35] LABS: Color, Urine SEE COMMENT BELOW (Yellow); Urine Bilirubin Dipstick 6 mg/dL (Negative)
[2023-08-09 18:40] LABS: Bacteria RARE /hpf (None Seen); Mucous, Urine 1+ /hpf (<or=2+); Squamous Epithelial Cells - UA 0-5 SEEN /hpf (5-10); White Blood Cells 0-5 SEEN /hpf (0-5)
[2023-08-09] MEDS: Ketorolac 15 MG/ML Vial IV (19:54)
[2023-08-09] MEDS: Ondansetron 4 MG/2 ML Vial IV (19:54)
--- NOTE | 2023-08-09 21:02 | US_ITS ---
STUDY: ULTRASOUND OF THE FEMALE PELVIS - COMPLETE REASON FOR EXAM: Female, 52 years old. pelvic pain LMP: Unknown TECHNIQUE: Transabdominal and Transvaginal TECHNICAL QUALITY: Adequate. COMPARISON: CT abdomen and pelvis from today. FINDINGS: The uterus is anteverted and is in a midline position. The uterus measures 7.7 x 4.8 x 3.4 cm. Normal uterine cervix. The endometrium measures 2 mm in thickness, and is normal. There is no demonstrated endometrial mass. There is no demonstrated myometrial mass. I.U.D. - The patient does not have an I.U.D. The right ovary is visualized. The right ovary measures 3.2 x 2.2 x 2.1 cm. There is no right ovarian cyst or ovarian mass. There is no visualized right adnexal mass or complex lesion. There is normal arterial and normal venous vascularity. There is an enlarged left ovary versus a left adnexal mass measuring 6.7 x 7.5 x 2.8 cm. A smaller complex fluid collection or cyst is 3.2 x 2.2 x 2.6 cm. Echogenic foci are noted system with calcifications. Peripheral color flow present. There is a large amount of fluid in the cul-de-sac. US/Transvaginal Non- IMPRESSION: Large complex left adnexal or ovarian mass and fluid collection or cyst. No evidence of torsion. Large amount of fluid in the cul-de-sac. [employer] consultation recommended. This appears to correspond to the suspected retroperitoneal mass on CT. Electronically Signed: Inocencio Love MD at 23:40 EDT ,
--- NOTE | 2023-08-09 23:12 | HP.PCM.HOS_ITS ---
HPI - General General Date of Admission: 08/09/23 Date of Service: 08/09/23 Chief Complaint: BL LQ, suprapubic pain, fever, N/V HPI Narrative The patient is a 52 y/o F w/ PMHx: Autoimmune thyroiditis/Graves' disease who presents to the [facility] ED on 08/09/23 with onset Sunday with nausea and emesis into that evening as well as Sunday however it started to subside but she has had intermittent continued subjective fevers in addition to bilateral lower quadrant pain as well as the suprapubic discomfort prompting urgent care evaluation with diagnosis of UTI and initiation on Bactrim and Pyridium reporting 1 dose of each however given ongoing symptoms with abdominal discomfort prompted eventual ED evaluation. She denies any burning sensation or increased urinary frequency. She notes normal flatus and bowel movements. Workup in the ED included Tmax 100.5, heart rate 127, BP 129/71, respiratory rate 18, 97% on room air with most recent repeat vitals T97.5, heart rate 92, BP 100/67, respiratory rate 18, 97% on room air, CBC with WBC 21.5, immune 14.4, platelet 209 with left shift, CMP with sodium 134, potassium 3.1, glucose 123, alk phos 122 otherwise hepatic profile unremarkable, lactic acid 1.1, lipase 17, urinalysis with specific remedy 1.015, urine protein 100, ketone 50, occult blood 50, positive nitrate, leukocyte Estrace negative, rare bacteria, blood culture x 2 pending per ED, urine culture pending per ED, CT abdomen and pelvis with IV contrast with a large retroperitoneal fluid collection or possibly cystic lesion although abscess cannot be excluded with suspected ileus, transvaginal ultrasound with a large complex left adnexal or ovarian mass and fluid collection or cyst with no evidence of any torsion, large amount of fluid in the cul-de-sac which likely corresponds to the suspected retroperitoneal mass on CT, blood culture x 2 pending per ED. Large retroperitoneal fluid collection, potentially abscess but of unclear etiology: Will admit to [facility], maintain on IVFs, clear liquids until midnight then NPO pending surgery evaluation as well as MRI of the abdomen per their recommendation, maintain on IV PPI, IV/po pain control, trend CBC, CMP, awaiting surgery evaluation but may need to consider IR for retroperitoneal fluid sampling is unclear exact etiology. Recently Diagnosed Acute Urinary Tract Infection, low suspicion active UTI: UA in the ED with positive nitrite but no marked urine WBCs or bacteria noted, recent diagnosis at urgent care started on Bactrim at that time but given this was this evening and UA is not severe appearing lower suspicion for actual urinary tract infection and more likely #1 as etiology for current symptom complaints however pending UCx, given concurrent findings on CT will maintain on IV Zosyn and IV vancomycin therapy pending further evaluation. Hypokalemia: Admission K+ 3.1, magnesium level requested, supplementation given, repeat level in AM. Autoimmune thyroiditis/Graves' disease: Noted history, per current list does not appear to be any type of regimen which patient does also confirm. DVT prophylaxis: SCDs in case of any intervention needs as noted. [facility] Medical History Encounter for preventative adult health care examination Autoimmune thyroiditis Voice hoarseness Allergic rhinitis Graves disease Thyroid disease History of pneumonia Hives Home Medications ?Medication ?Instructions ?Recorded ?Last Taken ?Type cholecalciferol (vitamin D3) 50 50 mcg PO BID 03/16/22 Unknown History mcg (2,000 unit) chewable tablet phenazopyridine 100 mg tablet 100 mg PO TID PRN pain #14 tabs 08/09/23 Unknown Rx sulfamethoxazole 800 1 tab PO Q12H 5 days #10 tabs 08/09/23 Unknown Rx mg-trimethoprim 160 mg tablet Allergy/AdvReac Type Severity Reaction Status Date / Time No Known Allergies Allergy Verified 08/09/23 17:14 Family History Grandmother Colon cancer Arthritis Grandfather Arthritis Heart disease Social History adopted: No household members: spouse and children number of children: 5 current occupational status: employed current occupation: [employer] pets and animals: Yes pets and animals: cat(s) and dog(s) Smoking Status: Never smoker alcohol intake: never substance use type: does not use caffeine: Yes (1) Type: coffee what type of physical activity do you participate in: none frequency: 3-4 times per week seatbelt use: always do you feel safe at home: Yes Vital Signs Vital Signs Vital Signs: 08/09/23 17:14 08/09/23 18:56 08/09/23 19:52 Temperature 100.5 F H 98.7 F 97.5 F L Temperature Source Temporal Oral Temporal Pulse Rate 127 H 94 92 Respiratory Rate 18 16 18 Blood Pressure 129/71 H 104/69 100/67 Blood Pressure Mean 90 80 78 Pulse Ox 97 97 97 Oxygen Delivery Method Room Air Room Air Room Air 08/09/23 21:00 08/09/23 22:00 08/09/23 22:51 Temperature 97.4 F L 97.3 F L 97.3 F L Temperature Source Temporal Temporal Pulse Rate 98 79 76 Respiratory Rate 19 H 15 15 Blood Pressure 100/66 104/73 104/73 Blood Pressure Mean 77 83 83 Pulse Ox 100 97 98 Oxygen Delivery Method Room Air Room Air 08/09/23 23:00 Temperature 98.1 F Temperature Source Oral Pulse Rate 80 Respiratory Rate 16 Blood Pressure 104/61 Blood Pressure Mean 75 Pulse Ox 99 Oxygen Delivery Method Room Air Weight Weight: 109 lb 4.8 oz Body Mass Index (BMI) 20.6 Results Lab / Micro Data 08/09/23 17:25 08/09/23 17:25 Labs: Laboratory Results - last 24 hr 08/09/23 17:25: WBC 21.5 H, RBC 4.80, Hgb 14.4, Hct 43.9, MCV 91.5, MCH 30.0, MCHC 32.8, RDW Std Deviation 41.6, RDW Coeff of Velma 12.4, Plt Count 209, MPV 9.5, Immature Gran % (Auto) 0.800, Neut % (Auto) 82.6 H, Lymph % (Auto) 11.5 L, [place] % (Auto) 4.8, Eos % (Auto) 0.1, Baso % (Auto) 0.2, Absolute Neuts (auto) 17.8 H, Absolute Lymphs (auto) 2.48, Nucleated RBC % 0, Sodium 134 L, Potassium 3.1 L, Chloride 101, Carbon Dioxide 27.0, Anion Gap 6, BUN 12, Creatinine 0.84, Estim Creat Clear Calc 58.45, Est GFR (MDRD) Af Amer 91, Est GFR (MDRD) Non-Af 75, BUN/Creatinine Ratio 14.3, Glucose 123 H, Calcium 9.2, Total Bilirubin 0.80, AST 15, ALT 16, Alkaline Phosphatase 122 H, Total Protein 7.9, Albumin 3.8, Globulin 4.1, Albumin/Globulin Ratio 0.9, Lipase 17 08/09/23 17:45: Lactic Acid 1.1 08/09/23 17:46: Urine Color SEE COMMENT BELOW, Urine Clarity Clear, Urine pH 5.0, Ur Specific [place] 1.015, Urine Protein 100 H, Urine Glucose (UA) Normal, Urine Ketones 50 H, Urine Occult Blood 50 H, Urine Nitrite Positive H, Urine Bilirubin 6 H, Urine Urobilinogen 12 H, Ur Leukocyte Esterase Negative, Urine RBC 0 SEEN, Urine WBC 0-5 SEEN, Ur Squamous Epith Cells 0-5 SEEN, Urine Bacteria RARE, Urine Mucus 1+ Imaging Radiology Impression Abdomen/Pelvis CT 08/09/23 18:07 IMPRESSION: Left retroperitoneal fluid collection or cystic lesion. Abscess not excluded. Ileus. Electronically Signed: Inocencio Love MD at 19:46 EDT ,
[2023-08-09] MEDS: Piperacil/Tazobactam 4.5 GM in 0.9% Normal Saline (100mL MB+) 100 ML IV (23:49)
--- NOTE | 2023-08-09 23:52 | PCM.CONS.GEN ---
Assessment & Plan Assessment/Plan (1) Abdominal pain: PLAN: Plan The patient is a 52 y/o F w/ PMHx: Autoimmune thyroiditis/Graves' disease who presents to the [facility] ED on 08/09/23 with onset Sunday with nausea and emesis into that evening as well as Sunday however it started to subside but she has had intermittent continued subjective fevers in addition to bilateral lower quadrant pain as well as the suprapubic discomfort prompting urgent care evaluation with diagnosis of UTI and initiation on Bactrim and Pyridium reporting 1 dose of each however given ongoing symptoms with abdominal discomfort prompted eventual ED evaluation. #1. Bilateral lower quadrant and suprapubic abdominal pain likely secondary to large complex left adnexal/ovarian mass versus fluid collection versus cyst with no current evidence of torsion but significant large amount of fluid in the cul-de-sac to likely corresponding to CT noted large retroperitoneal fluid collection: Discussed case with general surgery and ED physician before and after transvaginal ultrasound resulted and given these new findings recommended discussing case with gynecology and if intervention necessary given risk of torsion given size noted on transvaginal ultrasound the patient best to be admitted to their service. Given leukocytosis ED did administer IV vancomycin and IV Zosyn therapy and certainly given current findings may certainly continue antibiotic therapy pending further intervention by gynecological service. #2. Recently Diagnosed Acute Urinary Tract Infection, low suspicion active UTI: UA in the ED with positive nitrite but no marked urine WBCs or bacteria noted, recent diagnosis at urgent care started on Bactrim at that time but given this was this evening and UA is not severe appearing lower suspicion for actual urinary tract infection and more likely #1 as etiology for current symptom complaints however pending UCx pending. #3. Hypokalemia: Admission K+ 3.1, magnesium level ordered, supplementation given, repeat level in AM. #4. Autoimmune thyroiditis/Graves' disease: Noted history, per current list does not appear to be any type of regimen which patient does also confirm. #5. DVT prophylaxis: Will defer to primary gynecological service but in case of any intervention needs may consider SCDs. HPI Consult Data Date of Consult: 08/09/23 HPI Narrative Reason for Consultation: Concern intra-abdominal abscess, unclear etiology. HPI Narrative: The patient is a 52 y/o F w/ PMHx: Autoimmune thyroiditis/Graves' disease who presents to the [facility] ED on 08/09/23 with onset Sunday with nausea and emesis into that evening as well as Sunday however it started to subside but she has had intermittent continued subjective fevers in addition to bilateral lower quadrant pain as well as the suprapubic discomfort prompting urgent care evaluation with diagnosis of UTI and initiation on Bactrim and Pyridium reporting 1 dose of each however given ongoing symptoms with abdominal discomfort prompted eventual ED evaluation. She denies any burning sensation or increased urinary frequency. She notes normal flatus and bowel movements. Workup in the ED included Tmax 100.5, heart rate 127, BP 129/71, respiratory rate 18, 97% on room air with most recent repeat vitals T97.5, heart rate 92, BP 100/67, respiratory rate 18, 97% on room air, CBC with WBC 21.5, immune 14.4, platelet 209 with left shift, CMP with sodium 134, potassium 3.1, glucose 123, alk phos 122 otherwise hepatic profile unremarkable, lactic acid 1.1, lipase 17, urinalysis with specific remedy 1.015, urine protein 100, ketone 50, occult blood 50, positive nitrate, leukocyte Estrace negative, rare bacteria, blood culture x 2 pending per ED, urine culture pending per ED, CT abdomen and pelvis with IV contrast with a large retroperitoneal fluid collection or possibly cystic lesion although abscess cannot be excluded with suspected ileus, transvaginal ultrasound with a large complex left adnexal or ovarian mass and fluid collection or cyst with no evidence of any torsion, large amount of fluid in the cul-de-sac which likely corresponds to the suspected retroperitoneal mass on CT, blood culture x 2 pending per ED. follow-up transvaginal ultrasound with a large complex left adnexal or ovarian mass versus fluid collection or cyst with no current evidence of torsion with a large amount of fluid in the cul-de-sac. Initially the transvaginal ultrasound had not returned but patient's case had been discussed given concerns with ED physician and also with general surgery. Given return of the transvaginal ultrasound discussed case again with ED physician and also general surgery and decision made to defer this case to gynecology given these findings. [facility]END[facility] SALE TO [facility] Medical History Autoimmune thyroiditis Allergic rhinitis Graves disease Home Medications ?Medication ?Instructions ?Recorded ?Last Taken ?Type cholecalciferol (vitamin D3) 50 50 mcg PO BID 03/16/22 Unknown History mcg (2,000 unit) chewable tablet phenazopyridine 100 mg tablet 100 mg PO TID PRN pain #14 tabs 08/09/23 Unknown Rx sulfamethoxazole 800 1 tab PO Q12H 5 days #10 tabs 08/09/23 Unknown Rx mg-trimethoprim 160 mg tablet Allergy/AdvReac Type Severity Reaction Status Date / Time No Known Allergies Allergy Verified 08/09/23 17:14 Family History (Updated 08/09/23 @ 23:[address] Chanell Thompson MD) Grandmother Colon cancer Arthritis Grandfather Arthritis Heart disease Mother Hypertension Father , Passed secondary to complicates during COVID illness. Pneumonia due to COVID-19 virus Surgical History No history of previous surgery Social History adopted: No household members: spouse and children number of children: 5 current occupational status: employed current occupation: [employer] pets and animals: Yes pets and animals: cat(s) and dog(s) Smoking Status: Never smoker alcohol intake: never substance use type: does not use caffeine: Yes (1) Type: coffee what type of physical activity do you participate in: none frequency: 3-4 times per week seatbelt use: always do you feel safe at home: Yes ROS ROS Narrative Admission Review of Systems: CONSTITUTIONAL: No weight loss, + fever, chills, weakness or fatigue. HEENT: Eyes: No visual loss, blurred vision, double vision or yellow sclerae. Ears, Nose, Throat: No hearing loss, sneezing, congestion, runny nose or sore throat. SKIN: No rash or itching, lesions, wounds. CARDIOVASCULAR: No chest pain, chest pressure or chest discomfort, palpitations, edema, orthopnea, syncopal events. RESPIRATORY: No shortness of breath, cough or sputum, wheezing, hemoptysis. GASTROINTESTINAL: + anorexia, nausea, vomiting, lower abdominal and suprapubic discomfort. No diarrhea, melena, BRBPR. GENITOURINARY: + Suprapubic discomfort. No dysuria, frequency, urgency or retention. NEUROLOGICAL: No headache, dizziness, syncope, paralysis, ataxia, numbness or tingling in the extremities, focal weakness, change in bowel or bladder control, seizure. MUSCULOSKELETAL: No muscle, back pain, joint pain or stiffness. HEMATOLOGIC: No anemia, bleeding or bruising. LYMPHATICS: No enlarged nodes. No history of splenectomy. PSYCHIATRIC: No history of depression or anxiety. ENDOCRINOLOGIC: No reports of sweating, cold or heat intolerance. No polyuria or polydipsia. ALLERGIES: + History of hives. Physical Exam Narrative Physical Examination: General: Awake, alert, oriented x 3 and cooperative, seated upright in the ED bed in no apparent distress. Skin: Normal color, normal turgor, no icterus, no cyanosis. HEENT: AT/NC, EOMI, PERRLA, mildly dry MM, no carotid bruits or JVD noted. Lungs: CTA bilaterally, moderate effort, mild decrease BL bases, no rales, ronchi or wheezing. Heart: Regular rate and rhythm; no gallop, rub audible. Abdomen: Soft, discomfort to the suprapubic and bilateral lower quadrant with some voluntary guarding, no marked distention, hyperactive BS, no appreciated HSM however evaluation mildly difficult given pain elicited, thin habitus. Extremities: No cyanosis, clubbing, or edema. Neurological: Patient awake, alert, oriented as noted, cognitive function intact; pupils equally reactive to light and accommodation, cranial nerves grossly normal, moving all 4 extremities, no focal deficits, strength mildly to moderately globally decreased given acute presentation. Psychiatric: Affect appears fatigued otherwise normal, no acute evidence of depressive or anxiety feelings. Lab / Micro Data 08/09/23 17:25 08/09/23 17:25 Labs: Laboratory Results - last 24 hr 08/09/23 17:25: WBC 21.5 H, RBC 4.80, Hgb 14.4, Hct 43.9, MCV 91.5, MCH 30.0, MCHC 32.8, RDW Std Deviation 41.6, RDW Coeff of Velma 12.4, Plt Count 209, MPV 9.5, Immature Gran % (Auto) 0.800, Neut % (Auto) 82.6 H, Lymph % (Auto) 11.5 L, [place] % (Auto) 4.8, Eos % (Auto) 0.1, Baso % (Auto) 0.2, Absolute Neuts (auto) 17.8 H, Absolute Lymphs (auto) 2.48, Nucleated RBC % 0, Sodium 134 L, Potassium 3.1 L, Chloride 101, Carbon Dioxide 27.0, Anion Gap 6, BUN 12, Creatinine 0.84, Estim Creat Clear Calc 58.45, Est GFR (MDRD) Af Amer 91, Est GFR (MDRD) Non-Af 75, BUN/Creatinine Ratio 14.3, Glucose 123 H, Calcium 9.2, Total Bilirubin 0.80, AST 15, ALT 16, Alkaline Phosphatase 122 H, Total Protein 7.9, Albumin 3.8, Globulin 4.1, Albumin/Globulin Ratio 0.9, Lipase 17 08/09/23 17:45: Lactic Acid 1.1 08/09/23 17:46: Urine Color SEE COMMENT BELOW, Urine Clarity Clear, Urine pH 5.0, Ur Specific [place] 1.015, Urine Protein 100 H, Urine Glucose (UA) Normal, Urine Ketones 50 H, Urine Occult Blood 50 H, Urine Nitrite Positive H, Urine Bilirubin 6 H, Urine Urobilinogen 12 H, Ur Leukocyte Esterase Negative, Urine RBC 0 SEEN, Urine WBC 0-5 SEEN, Ur Squamous Epith Cells 0-5 SEEN, Urine Bacteria RARE, Urine Mucus 1+ Imaging Radiology Impression Abdomen/Pelvis CT 08/09/23 18:07 IMPRESSION: Left retroperitoneal fluid collection or cystic lesion. Abscess not excluded. Ileus. Electronically Signed: Inocencio Love MD at 19:46 EDT Reading Location ID and State: [address] [place] [address] Tel , Service support , Transvaginal US 08/09/23 21:02 IMPRESSION: Large complex left adnexal or ovarian mass and fluid collection or cyst. No evidence of torsion. Large amount of fluid in the cul-de-sac. [employer]QUIPMENT OPERATOR consultation recommended. This appears to correspond to the suspected retroperitoneal mass on CT. Electronically Signed: Inocencio Love MD at 23:40 EDT Reading Location ID and State: [facility] / [place] Tel , Service support , Charges/Coding Visit Charges Office Visits / Consults: [id number] ED Visit; High/Urgent Severity
[2023-08-10] VITALS (10 sets, daily range): BP systolic 89–104; BP diastolic 49–63; PULSE 79–93; RESP 15–19; TEMP 36.4–37.1; O2SAT 97–98; BMI 21.2
[2023-08-10] MEDS: Potassium Chloride Oral Tablet 20 MEQ 40 MEQ PO (00:12)
[2023-08-10] MEDS: Vancomycin HCl 750 MG in 0.9% Normal Saline (250mL Bag) 250 ML 250 MG IV (00:34)
[2023-08-10] MEDS: Ketorolac 30 MG/ML Syringe IV (05:33)
[2023-08-10 06:47] LABS: Absolute Lymphocyte Count 1.27 X10^3/uL (0.83-4.51); Absolute Neutrophil Count 11.8 X10^3/uL (2.0-7.7); Basophil# 0.04 X10^3/uL; Basophil% 0.3 % (0-1); Eosinophil# 0.06 X10^3/uL; Eosinophils% 0.4 % (0-5); Hematocrit 35.3 % (37-47); Hemoglobin 11.4 g/dL (12.0-15.0); Lymphocyte # 1.27 X10^3/ul (0.83-4.51); Lymphocyte % 9.1 % (19-41); Mean Corp Hgb Conc 32.3 g/dL (32-36); Mean Corpuscular Hgb 30.2 pg (27.0-32.0); Mean Corpuscular Volume 93.6 fL (81-99); Mean Platelet Vol. 9.7 fl (6.2-12.0); Monocyte# 0.69 X10^3/uL; Monocyte% 4.9 % (0-10); NRBC Flagged by Analyzer 0 % (0-5); Neutrophil # 11.82 X10^3/uL (2.7-7.7); Neutrophil % 84.6 % (47-70); Platelet Count 148 K/mm3 (150-450); RBC Distribution Width CV 12.5 % (11.6-14.6); RBC Distribution Width SD 43.2 fl (35.1-43.9); Red Blood Count 3.77 M/mm3 (4.2-5.4)
[2023-08-10 07:20] LABS: ALB/GLOB Ratio 0.8 RATIO (0.9-2.4); AST(SGOT) 12 U/L (15-37); Alanine Aminotransfer ALT/SGPT 14 U/L (13-56); Albumin, Serum 2.6 g/dL (3.2-5.0); Alkaline Phosphatase 93 U/L (45-117); Anion Gap 3 (5-15); BUN 9 mg/dL (7-18); BUN/Creat Ratio 14.4 RATIO (10-20); Calcium,Total 8.1 mg/dL (8.5-10.1); Chloride 113 mmol/L (98-107); Creatinine, Serum 0.63 mg/dL (0.55-1.02); EST Glomerular Filtration Rate 106 mL/min (>60); Est Glom Filt Rate - Afr Amer 128 mL/min (>60); Estimated Creatinine Clearance 77.93 ml/min; Globulin 3.2 g/dL (2.2-4.2); Glucose 98 mg/dL (74-106); Potassium 3.5 mmol/L (3.5-5.1); Protein, Total 5.8 g/dL (6.4-8.2); Sodium Level 140 mmol/L (136-145)
--- NOTE | 2023-08-10 07:56 | PCM.HP.OB ---
[facility] - General General Date of Admission: 08/10/23 Date of Service: 08/10/23 Chief Complaint: pelvic pain HPI Narrative ESTELITA GUEVARA, is a 52 F who presents with pelvic pain. She reports 2 days ago she started having abdominal pain and nausea. The pain is currently across her lower pelvis. With the pain she has fevers, chills, nausea, vomiting, and decreased appetite. She has never had pain like this before. She is postmenopausal. She denies vaginal bleeding. She is sexually active with her . She offers no concerns for STDs. She denies any vaginal discharge, itching, burning, irritation. She has not established with a virtual assistant for advertisers. She reports her PCP completes her Pap smears and mammograms. She denies a history of any gynecologic surgery or gynecologic infections in the past. [facility] Medical History Autoimmune thyroiditis Allergic rhinitis Graves disease Home Medications ?Medication ?Instructions ?Recorded ?Last Taken ?Type cholecalciferol (vitamin D3) 50 50 mcg PO BID 03/16/22 Unknown History mcg (2,000 unit) chewable tablet phenazopyridine 100 mg tablet 100 mg PO TID PRN pain #14 tabs 08/09/23 Unknown Rx sulfamethoxazole 800 1 tab PO Q12H 5 days #10 tabs 08/09/23 Unknown Rx mg-trimethoprim 160 mg tablet Allergy/AdvReac Type Severity Reaction Status Date / Time No Known Allergies Allergy Verified 08/09/23 17:14 Family History (Updated 08/09/23 @ 23:[address] Chanell Thompson MD) Grandmother Colon cancer Arthritis Grandfather Arthritis Heart disease Mother Hypertension Father , Passed secondary to complicates during COVID illness. Pneumonia due to COVID-19 virus Surgical History No history of previous surgery Social History adopted: No household members: spouse and children number of children: 5 current occupational status: employed current occupation: [employer] pets and animals: Yes pets and animals: cat(s) and dog(s) Smoking Status: Never smoker alcohol intake: never substance use type: does not use caffeine: Yes (1) Type: coffee what type of physical activity do you participate in: none frequency: 3-4 times per week seatbelt use: always do you feel safe at home: Yes Vital Signs Vital Signs Vital Signs: 08/09/23 17:14 08/09/23 18:56 08/09/23 19:52 Temperature 100.5 F H 98.7 F 97.5 F L Temperature Source Temporal Oral Temporal Pulse Rate 127 H 94 92 Respiratory Rate 18 16 18 Respiratory Effort Respiratory Depth Respiratory Pattern Blood Pressure 129/71 H 104/69 100/67 Blood Pressure Mean 90 80 78 Blood Pressure Source Blood Pressure Position Blood Pressure Location Pulse Ox 97 97 97 Oxygen Delivery Method Room Air Room Air Room Air 08/09/23 21:00 08/09/23 22:00 08/09/23 22:51 Temperature 97.4 F L 97.3 F L 97.3 F L Temperature Source Temporal Temporal Pulse Rate 98 79 76 Respiratory Rate 19 H 15 15 Respiratory Effort Respiratory Depth Respiratory Pattern Blood Pressure 100/66 104/73 104/73 Blood Pressure Mean 77 83 83 Blood Pressure Source Blood Pressure Position Blood Pressure Location Pulse Ox 100 97 98 Oxygen Delivery Method Room Air Room Air 08/09/23 23:00 08/10/23 00:00 08/10/23 01:04 Temperature 98.1 F 97.5 F L 98.1 F Temperature Source Oral Temporal Oral Pulse Rate 80 80 88 Respiratory Rate 16 19 H 17 Respiratory Effort Respiratory Depth Respiratory Pattern Blood Pressure 104/61 101/60 98/60 Blood Pressure Mean 75 73 72 Blood Pressure Source Blood Pressure Position Blood Pressure Location Pulse Ox 99 98 98 Oxygen Delivery Method Room Air Room Air Room Air 08/10/23 01:44 08/10/23 01:44 08/10/23 01:53 Temperature 98.4 F 98.4 F Temperature Source Oral Temporal Pulse Rate 81 81 81 Respiratory Rate 15 15 16 Respiratory Effort Normal Non-Labored Respiratory Depth Normal Respiratory Pattern Normal Blood Pressure 100/63 100/63 Blood Pressure Mean 75 75 Blood Pressure Source Monitor Blood Pressure Position Semi-Fowlers Blood Pressure Location Right Arm Pulse Ox 98 98 98 Oxygen Delivery Method Room Air Room Air Room Air 08/10/23 05:38 Temperature 98.7 F Temperature Source Oral Pulse Rate 91 Respiratory Rate 15 Respiratory Effort Respiratory Depth Respiratory Pattern Blood Pressure 95/58 L Blood Pressure Mean 70 Blood Pressure Source Monitor Blood Pressure Position Semi-Fowlers Blood Pressure Location Right Arm Pulse Ox 98 Oxygen Delivery Method Room Air Weight Weight: 112 lb 1.6 oz Body Mass Index (BMI) 21.2 Physical Exam Const alert and no apparent distress General Appearance: comfortable HEENT normocephalic Resp normal respiratory effort GI soft to palpation and non-distended GI Narrative: +Moderate tenderness in mid lower abdomen. No rebounding, no guarding, no rigidity Narrative: Patient declines pelvic exam at this time as she has no vaginal complaints Extremity normal to inspection and no calf tenderness Labs Labs Labs: Hct 35.3 % (37-47) L Hgb 11.4 g/dL (12.0-15.0) L Assessment & Plan (1) Abdominal pain: PLAN: Given clinical picture, suspect pelvic abscess rather than adnexal cyst. (2) Fever: PLAN: Has been afebrile since admission. (3) Leukocytosis: PLAN: WBC improving on labs this morning. Repeat CBC with diff in AM. (4) TOA (tubo-ovarian abscess): PLAN: Urine GC/CT in process. Blood and urine cx's in process. Continue IV Ceftriaxone, PO Doxycycline, and IV Metronidazole at this time. WBC is improving and she has been afebrile since admission. Last fever was in ER on 08/08 at 1714. She feels her pain is improving however has received IV Toradol. Will d/c Toradol given low platelets. Tylenol ordered as needed for now, but nursing staff to call before giving if patient is febrile. SCD's for DVT prophylaxis. Repeat labs in the morning. Discussed treatment course with suspected TOA with patient and questions answered. Reviewed CT and pelvic US results with patient. ER physician had contacted general surgery, who felt that this is not bowel related. Will update Dr. Lama provider teaching music lessons today and this weekend.
[2023-08-10] MEDS: Doxycycline 100 MG CAPSULE PO ×2 (09:57→21:57)
[2023-08-10] MEDS: Ceftriaxone 1 GM/50 ML BAG IV (09:57)
[2023-08-10] MEDS: 0.9% Saline Lock 10 ML Syringe IV (10:00)
--- NOTE | 2023-08-10 10:05 | CASEMGMT ---
JOANIE LAURENT Assessment: Face to Face with pt for initial transition planning/care coordination assessment. RN MEHRAN introduced self and role at [facility], pt voices understanding and consents to assessment. Pt lying in bed in no distress. Pt is A&O x4 and answers all questions appropriately at this time. Care providers, pharmacy, and demographics verified/updated. Admitting Dx: L Adnexal Cystic Mass, Leukocytosis PCP: Deonte Specialists: -Train Examiner Preferred Pharmacy: [facility] Insurance: [place] Prescription Benefit: yes LNOK: [place]- Living Arrangements: Pt lives in a 3 story home with zero steps to enter. Pt states I with ADLs and IADLs. Transportation: Pt drives self and denies concerns with transportation. DME: Denies HHC/SNF: Denies Hx of. Pt states no concerns with going home at time of dc. Pt states no further concerns/needs. CM to follow. Advised pt to ask CM if any further question/concerns/needs arise, voices understanding. Pt Goal: Home Plan: Home no needs. Luis NAIR CM
[2023-08-10] MEDS: metroNIDAZOLE 500 MG/100 ML BAG 100 MG IV ×2 (11:13→21:59)
[2023-08-10] MEDS: 0.9% Normal Saline (1000mL) 1,000 ML 999 ML IV (11:45)
[2023-08-10] MEDS: Acetaminophen 325 MG Tablet 650 MG PO ×2 (14:47→21:57)
[2023-08-11 02:39] VITALS: BP 98/61; PULSE 69; RESP 16; TEMP 36.7; O2SAT 98
[2023-08-11] MEDS: oxyCODONE 5 MG Tablet PO ×2 (02:40→21:24)
[2023-08-11] MEDS: 0.9% Normal Saline (250mL Bag) 250 ML 15 ML IV (02:43)
[2023-08-11] MEDS: 0.9% Saline Lock 10 ML Syringe IV ×3 (02:44→21:25)
[2023-08-11 05:38] LABS: Absolute Lymphocyte Count 1.75 X10^3/uL (0.83-4.51); Absolute Neutrophil Count 6.8 X10^3/uL (2.0-7.7); Basophil# 0.03 X10^3/uL; Basophil% 0.3 % (0-1); Eosinophils% 2.2 % (0-5); Hematocrit 32.2 % (37-47); Hemoglobin 10.6 g/dL (12.0-15.0); Lymphocyte # 1.75 X10^3/ul (0.83-4.51); Lymphocyte % 18.9 % (19-41); Mean Corp Hgb Conc 32.9 g/dL (32-36); Mean Corpuscular Volume 94.2 fL (81-99); Mean Platelet Vol. 9.8 fl (6.2-12.0); Monocyte# 0.47 X10^3/uL; Monocyte% 5.1 % (0-10); NRBC Flagged by Analyzer 0 % (0-5); Neutrophil # 6.76 X10^3/uL (2.7-7.7); Neutrophil % 73.2 % (47-70); Platelet Count 154 K/mm3 (150-450); RBC Distribution Width CV 12.6 % (11.6-14.6); RBC Distribution Width SD 43.7 fl (35.1-43.9); Red Blood Count 3.42 M/mm3 (4.2-5.4); White Blood Count 9.2 K/mm3 (4.4-11.0)
[2023-08-11 05:57] LABS: Anion Gap 5 (5-15); BUN 9 mg/dL (7-18); BUN/Creat Ratio 15.8 RATIO (10-20); Calcium,Total 8.2 mg/dL (8.5-10.1); Chloride 114 mmol/L (98-107); Creatinine, Serum 0.57 mg/dL (0.55-1.02); EST Glomerular Filtration Rate 118 mL/min (>60); Est Glom Filt Rate - Afr Amer 143 mL/min (>60); Estimated Creatinine Clearance 86.13 ml/min; Glucose 105 mg/dL (74-106); Potassium 3.4 mmol/L (3.5-5.1); Sodium Level 142 mmol/L (136-145)
[2023-08-11 08:39] VITALS: BP 102/76; PULSE 91; RESP 18; TEMP 37; O2SAT 98
--- NOTE | 2023-08-11 09:10 | PN.OBGYN_ITS ---
Subjective Subjective Need pain medication over night. Nausea but no vomiting. Afebrile since admission. WBC now normal. No appetite.but does tolerate PO. Awaiting final culture results. Prelim with gram negative rods. Discussed 48 hours of IV antibiotics and no fever. before discharge with oral antibiotics. Discussed TOA vs diverticular abscess. Low risk for TOA as postmenopausal women. Has not had any GI or PROJECT ACCOUNT MANAGER issues previously. GC/CT negative. Urine culture negative Objective Data Objective Data Vital Signs: Vital Signs Temp Pulse Resp BP Pulse Ox O2 Del Method 98.1 F 69 16 98/61 98 Room Air 08/11/23 02:39 08/11/23 02:39 08/11/23 02:39 08/11/23 02:39 08/11/23 02:39 08/11/23 02:39 Oxygen Delivery Method Room Air Weight: 50.848 kg Body Mass Index (BMI) 21.2 Intake & Output: Intake and Output for Last 24 Hours 08/09/23 08/10/23 08/11/23 23:59 23:59 23:59 Intake Total 1999 2190 / 2190 0.75 / 0.75 Output Total 150 / 150 Balance 1999 0.75 / 0.75 Lab / Micro Data 08/11/23 05:08 08/11/23 05:08 Labs: Laboratory Results - last 24 hr 08/11/23 05:08: WBC 9.2, RBC 3.42 L, Hgb 10.6 L, Hct 32.2 L, MCV 94.2, MCH 31.0, MCHC 32.9, RDW Std Deviation 43.7, RDW Coeff of Velma 12.6, Plt Count 154, MPV 9.8, Immature Gran % (Auto) 0.300, Neut % (Auto) 73.2 H, Lymph % (Auto) 18.9 L, Elmore % (Auto) 5.1, Eos % (Auto) 2.2, Baso % (Auto) 0.3, Absolute Neuts (auto) 6.8, Absolute Lymphs (auto) 1.75, Nucleated RBC % 0, Sodium 142, Potassium 3.4 L , Chloride 114 H, Carbon Dioxide 23.0, Anion Gap 5, BUN 9, Creatinine 0.57, Estim Creat Clear Calc 86.13, Est GFR (MDRD) Af Amer 143, Est GFR (MDRD) Non-Af 118, BUN/Creatinine Ratio 15.8, Glucose 105, Calcium 8.2 L Micro: Microbiology 08/09/23 18:15 Blood Culture (Wb) - Anticubital Left Blood Culture - Preliminary 08/09/23 17:46 Urine, Clean Catch Urine Culture - Preliminary Culture exhibits no growth. 08/10/23 06:40 Urine, Clean Catch Chlamydia trachomatis (PCR) - Final 08/10/23 06:40 Urine, Clean Catch Neisseria gonorrhoeae (PCR) - Final Physical Exam Const alert, oriented x3 and no apparent distress General Appearance: cooperative and well developed HEENT normocephalic and head/scalp atraumatic Eyes PERRL and EOMs intact bilaterally Neck full ROM Resp normal respiratory effort GI non-distended and no masses Palpation: guarding LUQ; Negative for rigid Extremity normal to inspection and full ROM Skin no rashes or lesions noted Neuro Sensorium / Orientation: awake and alert Cranial Nerves: CN normal except as noted Psych mental status grossly normal and thought process normal Assessment & Plan (1) Abdominal pain: (2) Pelvic abscess in female: PLAN: Continue current IV antibiotics pending culture results. Afebrile x 36 hours Pain tolerable No vomiting or diarrhea (3) Retroperitoneal fluid collection:
[2023-08-11] MEDS: metroNIDAZOLE 500 MG/100 ML BAG 100 MG IV ×2 (09:30→21:25)
[2023-08-11] MEDS: Doxycycline 100 MG CAPSULE PO ×2 (09:30→21:19)
[2023-08-11] MEDS: Ceftriaxone 1 GM/50 ML BAG IV (11:50)
[2023-08-11] MEDS: Ondansetron 4 MG/2 ML Vial IV (15:33)
[2023-08-11 16:09] VITALS: BP 126/76; PULSE 91; RESP 18; TEMP 37.1; O2SAT 98
[2023-08-11 21:16] VITALS: BP 121/78; PULSE 80; RESP 15; TEMP 37.1; O2SAT 98
[2023-08-11 22:00] VITALS: RESP 15
[2023-08-12 03:18] VITALS: BP 115/74; PULSE 77; RESP 15; TEMP 37.2; O2SAT 98
[2023-08-12 03:21] VITALS: RESP 15; O2SAT 97
[2023-08-12 09:00] VITALS: BP 125/73; PULSE 83; RESP 16; TEMP 36.4; O2SAT 98
[2023-08-12] MEDS: Ceftriaxone 1 GM/50 ML BAG IV (09:05)
[2023-08-12] MEDS: Doxycycline 100 MG CAPSULE PO (09:10)
[2023-08-12] MEDS: metroNIDAZOLE 500 MG/100 ML BAG 100 MG IV (09:10)
--- NOTE | 2023-08-12 12:23 | PCM.PN.OB ---
Subjective Subjective Feeling better. Took oxy for bed time but otherwise has not requested pain medication. Decreased appetite but no nausea or vomiting. Afebrile since admission. Blood culture prelim for gram negative rods and Strep F. S/p 60 hours of antibiotics. Patient would like to go home. Reviewed continuing medication for 14 days. Return for worsening pain or fever. Can follow up with PCP or MANAGER OF HOUSEKEEPING. Should get follow up imaging as infection resolves to evaluate for underlying cause. Rare but possible ovarian mass underlying abscess. Objective Data Objective Data Vital Signs: Vital Signs Temp Pulse Resp BP Pulse Ox O2 Del Method 98.9 F 77 15 115/74 97 Room Air 08/12/23 03:18 08/12/23 03:18 08/12/23 03:21 08/12/23 03:18 08/12/23 03:21 08/12/23 03:21 Oxygen Delivery Method Room Air Weight: 50.848 kg Body Mass Index (BMI) 21.2 Intake & Output: Intake and Output for Last 24 Hours 08/10/23 08/11/23 08/12/23 23:59 23:59 23:59 Intake Total 2190 / 2190 2250.75 / 2250.75 100 / 100 Output Total 150 / 150 Balance 2040 / 2040 2250.75 / 2250.75 100 / 100 Lab / Micro Data 08/11/23 05:08 08/11/23 05:08 Micro: Microbiology 08/09/23 18:15 Blood Culture (Wb) - Anticubital Left Blood Culture - Preliminary 08/09/23 18:12 Blood Culture (Wb) - Anticubital Right Blood Culture - Preliminary Streptococcus group F 08/09/23 17:46 Urine, Clean Catch Urine Culture - Final Culture exhibits no growth. 08/10/23 06:40 Urine, Clean Catch Chlamydia trachomatis (PCR) - Final 08/10/23 06:40 Urine, Clean Catch Neisseria gonorrhoeae (PCR) - Final ROS Constitutional Constitutional: Reports poor appetite; Denies fever(s) Cardiovascular Cardiovascular: Denies chest pain or dyspnea Gastrointestinal Gastrointestinal: Denies diarrhea, nausea or vomiting Neurologic Neurologic: Reports systems reviewed and no addt'l complaints, except as documented Psychiatric Psychiatric: Reports systems reviewed and no addt'l complaints, except as documented Physical Exam Const alert, oriented x3 and no apparent distress General Appearance: cooperative and comfortable HEENT normocephalic and head/scalp atraumatic Eyes PERRL Neck full ROM Resp normal respiratory effort GI soft to palpation and non-distended Extremity normal to inspection Neuro oriented x3 Assessment & Plan (1) Pelvic abscess in female: (2) Leukocytosis: QUALIFIERS: Leukocytosis type: other Qualified Code(s): D72.828 - Other elevated white blood cell count (3) Fever: QUALIFIERS: Fever type: due to other condition Qualified Code(s): R50.81 - Fever presenting with conditions classified elsewhere PLAN: Plan Follow up outpatient for imaging and continue with oral antibiotics
--- NOTE | 2023-08-12 12:38 | PCM.DC.SUM ---
Providers Date of Admission: 08/10/23 Date of Discharge: 08/12/23 Primary Care Physician: Dr. Mikhail Clemons, DO Reason For Visit: LEFT ADNEXAL CYSTIC MASS, LEUKOCYTOSIS Diagnosis Discharge Diagnosis (1) Pelvic abscess in female: Status: Acute Code(s): N73.9 - Female pelvic inflammatory disease, unspecified (2) Leukocytosis: Status: Acute Code(s): D72.829 - Elevated white blood cell count, unspecified Qualifiers: Leukocytosis type: other Qualified Code(s): D72.828 - Other elevated white blood cell count (3) Fever: Status: Acute Code(s): R50.9 - Fever, unspecified Qualifiers: Fever type: due to other condition Qualified Code(s): R50.81 - Fever presenting with conditions classified elsewhere Plan Follow up outpatient for imaging and continue with oral antibiotics Medications at Discharge Home Medications cholecalciferol (vitamin D3) 50 mcg (2,000 unit) chewable tablet 50 mcg PO BID 03/16/22 amoxicillin 500 mg-potassium clavulanate 125 mg tablet (Augmentin) 1 tab PO BID #28 tabs 08/12/23 doxycycline monohydrate 100 mg capsule 100 mg PO BID #28 caps 08/12/23 metronidazole 500 mg tablet 500 mg PO BID #28 tabs 08/12/23 Hospital Course Operations None Procedures None Summary of Care Provided Minutes Spent on Discharge: 23 Hospital Course: Admitted through ED with Fever and left pelvic abscess. IV antibiotics started and continue over 60 hours. No additional fever. White count normal after 36 hours. Blood cultures positive for different bacteria. Pain improved. Requires minimal pain management. Physical Exam Const alert, oriented x3 and no apparent distress General Appearance: cooperative and comfortable HEENT normocephalic Eyes PERRL Neck full ROM Resp normal respiratory effort GI soft to palpation and non-distended Extremity normal to inspection Skin no rashes or lesions noted Psych mental status grossly normal Weight / BMI Weight Weight: 50.848 kg Body Mass Index (BMI) 21.2 ABG / Lab / Microbiology Data 08/11/23 05:08 08/11/23 05:08 Microbiology: Microbiology 08/09/23 18:15 Blood Culture (Wb) - Anticubital Left Blood Culture - Preliminary 08/09/23 18:12 Blood Culture (Wb) - Anticubital Right Blood Culture - Preliminary Streptococcus group F 08/09/23 17:46 Urine, Clean Catch Urine Culture - Final Culture exhibits no growth. 08/10/23 06:40 Urine, Clean Catch Chlamydia trachomatis (PCR) - Final 08/10/23 06:40 Urine, Clean Catch Neisseria gonorrhoeae (PCR) - Final D/C Instructions Discharge Diet: No restrictions Discharge Activity: Return to Normal Activity Call your doctor if you observe: Fever of 101 or Higher, Shortness of breath, Chest pain and Uncontrolled pain Please Follow Up With: mAber Hartmann DO When: 1-2 weeks Meaningful Use Info Meaningful Use Meaningful Use Diagnoses (Choose all that apply): None applicable Ischemic Stroke Statin Dosing Therapy Reference: STATIN DOSE THERAPY REFERENCE: * Patients > 75 years receive moderate or high dose statin therapy. * Patients 75 years or YOUNGER should receive HIGH intensity statin dose unless contraindicated. You will be required to document reason for non-treatment if statin daily dose does not meet guidelines. HIGH DOSE STATIN THERAPY DAILY Atorvastatin > than or = to 40 mg Rosuvastatin > than or = to 20 mg Amlodipine + Atorvastatin > than or = to 2.5/40 mg Ezetimibe + Simvastatin 10/80 mg Simvastatin 80mg Discharge Plan Admission Admit Date/Time: 08/10/23 02:14 Primary Reason for Your Visit: pelvic abscess Attending Provider: Amber Hartmann Primary Care Provider: Mikhail Clemons Discharge Orders/Prescriptions Prescriptions: New doxycycline monohydrate 100 mg Capsule 100 mg PO BID Qty: 28 0RF metronidazole 500 mg tablet 500 mg PO BID Qty: 28 0RF amoxicillin-pot clavulanate [Augmentin] 500-125 mg tablet 1 tab PO BID Qty: 28 0RF Continued cholecalciferol (vitamin D3) 50 mcg (2,000 unit) tablet,chewable 50 mcg PO BID Discontinued sulfamethoxazole-trimethoprim 800-160 mg tablet 1 tab PO Q12H 5 Days Qty: 10 0RF phenazopyridine 100 mg tablet 100 mg PO TID PRN (Reason: pain) Qty: 14 0RF Referrals / Follow Up: Mikhail Clemons DO [Primary Care Provider] - Disposition Disposition (needs filled in before D/C Order can be placed): Home, Self Care
[2023-08-12 14:09] VITALS: BP 111/74; PULSE 74; RESP 18; TEMP 36.8; O2SAT 98
== END 2023-08-12 14:10 | disposition home or self-care (01) | DRG 757 ==
LOC: ED 18:09 → MS3 08-10 02:24
PROVIDERS: Family Medicine; Physician Assistant; Admitting Provider Obstetrics & Gynecology; Emergency Provider Emergency Medicine; PCP Family Medicine; Visit Provider Obstetrics & Gynecology
DX: N70.93 Salpingitis and oophoritis, unspecified (principal); K68.9 Other disorders of retroperitoneum; D72.828 Other elevated white blood cell count; E87.6 Hypokalemia; R50.81 Fever presenting with conditions classified elsewhere
CPT/HCPCS: 36415; 74177; 76830; 80048; 80053; 81001; 83605; 83690; 83735; 85025; 87040; 87077; 87086; 87491; 87591; 97802; 99285; J7030; J7040; J7050; Q9967; A4216; J2405

== ENCOUNTER → 2023-08-09 | Outpatient (CLI) | payer BC, SELFPAY | END | disposition home or self-care (01) | LOC: LABSPEC 15:33 | PROVIDERS: PCP Family Medicine; Referring Provider Nurse Practitioner; Visit Provider Nurse Practitioner | DX: R30.0 Dysuria (principal) | CPT/HCPCS: 87086; 87088 ==

== ENCOUNTER → 2023-09-24 | Outpatient (CLI) | payer BC, SELFPAY ==
--- NOTE | 2023-09-24 17:46 | CT_ITS ---
EXAM: CT PELVIS WITH INTRAVENOUS CONTRAST CLINICAL INDICATION: PELVIC ABSCESS TECHNIQUE: Helically acquired images were obtained of the pelvis with intravenous contrast. This CT exam was performed using one or more of the following dose reduction techniques: automated exposure control, adjustment of the mA and/or kV according to patient size, and/or use of iterative reconstruction technique. CONTRAST: 100 CC ISOVUE 300 RADIATION DOSE: CTDIvol = 25.57 mGy, DLP = 820.64 mGy-cm COMPARISON: CT scan of the abdomen and pelvis of 08/09/2023 FINDINGS: BOWEL: Unremarkable as visualized. No bowel distention. No focal inflammatory change. APPENDIX: No evidence of acute appendicitis. INTRAPERITONEAL SPACE: Left lower quadrant complex fluid collection is again seen extending to the pelvic region measuring about 6.3 x 3.6 x 6 cm essentially unchanged since the prior examination. Mild free fluid in the pelvis unchanged. No free air. BLADDER: Unremarkable. REPRODUCTIVE: Prominent endometrium better evaluated by ultrasound. BONES/JOINTS: Unremarkable. No suspicious lytic or blastic abnormality. SOFT TISSUES: No pelvic wall hernia. LYMPH NODES: No enlarged lymph nodes. CT/Pelvis WITH IV Contrast IMPRESSION: 1. Left lower quadrant complex fluid collection essentially unchanged since the prior examination. 2. Mild free fluid in the pelvis unchanged. Electronically Signed: Kalia Landaverde MD at 10:37 EDT ,
== END | disposition home or self-care (01) ==
PROVIDERS: PCP Family Medicine; Referring Provider Obstetrics & Gynecology; Visit Provider Obstetrics & Gynecology
DX: N73.9 Female pelvic inflammatory disease, unspecified (principal)
CPT/HCPCS: 72193; Q9967

== ENCOUNTER → 2023-10-02 | Outpatient (CLI) | payer BC, SELFPAY ==
--- NOTE | 2023-10-02 17:16 | US_ITS ---
INDICATION: left pelvic mass EXAMINATION: Ultrasound US Pelvis Non-OB Complete COMPARISON: Pelvis CT 09/24/2023. Pelvic ultrasound and abdominal CT 08/09/2023 FINDINGS: 97 grayscale ultrasound images of the pelvis. UTERUS: Uterus measures : 6.1 x 3.5 x 5.1 cm. Endometrial thickness of 0.2 cm. Myometrium is unremarkable. ADNEXA: Flow is documented to bilateral ovaries by color Doppler as well as Doppler waveform. Right ovary is unremarkable. Again is noted large 6.8 x 2.7 x 5.2 cm left adnexal heterogeneous hypoechoic mass containing punctate foci, likely calcifications. No definite internal vascular flow by color Doppler. No significant free fluid. US/Transvaginal Non- IMPRESSION: Again is noted 7 cm left pelvic mass without identification of the left ovary. Cystic malignancy is not excluded. May be better evaluated with dedicated pelvic MRI. Electronically Signed: Ac Wolf MD at 4:20 EDT ,
== END | disposition home or self-care (01) ==
LOC: US 17:15
PROVIDERS: PCP Family Medicine; Referring Provider Family Medicine; Visit Provider Family Medicine
DX: N73.9 Female pelvic inflammatory disease, unspecified (principal)
CPT/HCPCS: 76830

== ENCOUNTER → 2024-01-23 | Outpatient (CLI) | payer BC, SELFPAY ==
[2024-01-23 12:47] LABS: Free T3 2.7 pg/mL (2.18-3.98); T4 Free Direct 0.72 ng/dL (0.76-1.46)
== END | disposition home or self-care (01) ==
LOC: BIMLAB 10:39
PROVIDERS: PCP Family Medicine; Referring Provider Internal Medicine Endocrinology, Diabetes & Metabolism; Visit Provider Internal Medicine Endocrinology, Diabetes & Metabolism
DX: E06.3 Autoimmune thyroiditis (principal)
CPT/HCPCS: 36415; 84439; 84443; 84481

== ENCOUNTER → 2024-08-19 | Outpatient (CLI) | payer BC, SELFPAY ==
[2024-08-19 17:07] LABS: ALB/GLOB Ratio 1.6 RATIO (0.9-2.4); AST(SGOT) 25 U/L (<=31); Alanine Aminotransfer ALT/SGPT 17 U/L (<=34); Albumin, Serum 4.7 g/dL (3.5-5.0); Alkaline Phosphatase 138 U/L (35-104); Anion Gap 11 (5-15); BUN 20 mg/dL (4-19); BUN/Creat Ratio 27.9 RATIO (10-20); Calcium,Total 9.3 mg/dL (7.6-11.0); Carbon Dioxide 26.6 mmol/L (21.0-32.0); Chloride 103 mmol/L (98-108); Cholesterol 217 mg/dL (<=200); Creatinine, Serum 0.72 mg/dL (0.70-1.20); EST Glomerular Filtration Rate 99 (>60); Globulin 2.9 g/dL (2.2-4.2); Glucose 137 mg/dL (70-99); High Density Lipoprotein 75 mg/dL; Low Density Lipoprotein Calc. 129 mg/dL; Protein, Total 7.6 g/dL (5.9-8.4); Sodium Level 141 mmol/L (133-145); Total Bilirubin 0.36 mg/dL (0.00-1.30); Triglycerides 67 mg/dL; Very Low Density Lipoprotein 13 mg/dL (5-40); cholesterol:hdl ratio screen 2.91
== END | disposition home or self-care (01) ==
LOC: BIMLAB 13:33
PROVIDERS: Internal Medicine Endocrinology, Diabetes & Metabolism; PCP Family Medicine; Referring Provider Family Medicine; Visit Provider Family Medicine
DX: Z00.00 Encounter for general adult medical examination without abnormal findings (principal); E06.3 Autoimmune thyroiditis
CPT/HCPCS: 36415; 80053; 80061; 84439; 84443; 84481